=== PATIENT | male | born 1945 | race Hispanic/Latino ===

== ENCOUNTER 2022-10-05 09:46 | Day surgery (SDC) | payer BC ==
[2022-09-29 15:42] LABS: Specific Gravity 1.024 (1.005-1.030); Urine Bilirubin NEGATIVE (Negative); Urine Blood Negative (Negative); Urine Clarity Clear (Clear); Urine Color Light-Yellow (Yellow); Urine Glucose NEGATIVE (Negative); Urine Protein NEGATIVE (Negative); Urine Urobilinogen 1+ (Normal); Urine pH 6.5 (5.0-7.0)
[2022-10-05] MEDS ORDERED: NA CHLORIDE 0.9% 1,000 ML ONE ×2 (09:58→12:13)
[2022-10-05] MEDS ORDERED: CEFAZOLIN SODIUM 2 GM/VIAL ONE (09:58)
[2022-10-05] MEDS ORDERED: propofoL 200 MG/20 ML VIAL IV ONE (10:23)
[2022-10-05] MEDS ORDERED: FENTANYL CITR 100 MCG/2 ML ONE (10:23)
[2022-10-05] MEDS ORDERED: MIDAZOLAM HCL 2 MG/2 ML INJ ONE ×2 (10:24→10:27)
[2022-10-05] MEDS ORDERED: LIDOCAINE 1% MPF 5 ML VIAL ONE (10:24)
[2022-10-05] MEDS ORDERED: BUPIVACAINE 0.25% PF 30 ML VIAL ONE (10:32)
[2022-10-05] MEDS ORDERED: BACITRACIN OINTMENT 14 GM TUBE TOP ONE (10:32)
[2022-10-05] MEDS ORDERED: GLYCOPYRROLATE 0.2 MG/ML SYR ONE (11:24)
[2022-10-05] MEDS ORDERED: MORPHINE 10 MG/ML VIAL ONE (12:28)
[2022-10-05] MEDS ORDERED: HYDROCODONE/APAP 5/325 MG TAB PO PRN (13:01)
[2022-10-05 14:27] VITALS: BP 140/86; TEMP 96.5; O2SAT 97
--- NOTE | 2022-10-05 14:27 | OP ---
Surgeon: LSE ROJAS Preoperative Diagnoses: 1.Large left hydrocele. 2.Status post left inguinal hernia repair. Postoperative Diagnoses: 1.Moderate left hydrocele. 2.Large loculated and multiseptated left spermatocele. Principal Procedures: 1.Left scrotal hydrocelectomy. 2.Left spermatocelectomy-complex. Indication For Procedure: Mr. Lindquist presented to [facility] with massive enlarged scrotum b ilaterally with suggestion of potential intra-abdominal contents herniating into the scrotal sac. He underwent a CT scan, which confirmed the presence of significant left inguinal hernia containing bow el as well as a fat containing right inguinal hernia. While hydrocele fluid was also noted, given th e presence of the hernias, he underwent inguinal hernia repair with Dr. Copeland. Following that rep air, the swelling of the scrotum persisted. A scrotal ultrasound revealed absence of any intra-testi cular lesions; so he was consented and prepared for definitive surgical management of the residual le ft hemiscrotal swelling suspected to be due to a residual large left hydrocele. Procedure In Detail: The patient was consented in the preoperative holding area before being transfe rred to the operative suite where general anesthesia was induced. He was given Ancef 2 g IV antimicr obial prophylaxis, and pneumo boots were provided for DVT prophylaxis. His left hemiscrotum was shav ed, prepped with Betadine and draped in standard fashion. Subcutaneous Marcaine was instilled in an approximately 3-4 cm Matti's line incision in the anterior left hemiscrotum. A 15 blade was used to incise the epidermis and the subcutaneous tissues and dartos layers were divided using pinpoint elec trocautery. This was taken down to the level of the tunica vaginalis, at which point the surrounding dartos tissues were released with blunt and sharp electrocautery dissection from the underlying raymundo etal layer of the tunica vaginalis. Once it had been circumferentially dissected, I then incised the parietal layer of the tunica vaginalis in the ventral midline superiorly and decompressed it of a si gnificant quantity of straw-colored, but clear fluid. Once sufficiently decompressed in order to del iver it through the scrotal incision, it became apparent that there was not just the hydrocele, but a lso a very significant sized multiloculated and septated spermatocele. As a result, once completely delivered into the operative field, I then dissected the tunica vaginalis off the surrounding spermat ocele until the spermatocele itself was remnant and attached to the epididymis. Then careful dissect ion was performed using blunt dissection and pinpoint electrocautery to divide all of the soleus and vascular attachments along with any ductal structures delivering sperm from the epididymis into the m ultiloculated and septated spermatocele structure. After extensive dissection, once the multiloculat ed spermatocele was freed except for its attachment to the lower pole of the testis at the tail of th e epididymis, I then utilized a 4-0 Monocryl suture to over-sew the ductal attachments before dividin g the spermatocele sac and releasing it off the tail of the epididymis. This was sent for pathologic analysis, and the remainder of the ductal attachments to the tail of the epididymis were oversewn in a running fashion using a 4-0 Monocryl suture. I then performed a careful search for bleeding withi n the testicular structures and in the scrotum and irrigated the area copiously with saline. All ble eding vessels were pinpoint fulgurated, and so I turned my attention back to the hydrocele sac. The excess component of the hydrocele sac was excised before folding it back around the cord structures a nd suturing it together using a running and every third interlocking suture of 3-0 Vicryl. Once this was performed and excellently hemostatic, we again irrigated the tissues and fulgurated any bleeding vessels observed. Once we were happy with the hemostasis achieved, the testis was delivered back in to the scrotal sac and the sac was closed in a running fashion with 3-0 Vicryl closing the dartos and subcutaneous layers. The skin and subcutaneous tissues were similarly closed thereafter using a run daniel 3-0 chromic suture dipped in bacitracin. In the end, the cosmetic result was excellent. The Be tadine was washed off the skin, and bacitracin was applied to the incision. A fluff gauze as well as a scrotal supporter were subsequently applied, and the patient was awakened from general anesthesia. He was then transferred to a stretcher before being transferred to the recovery room in good condit ion. Complications: None. Discharge Disposition: He may follow up in the Urology Clinic in the next 6-8 weeks interval assessm ent of the left hydrocele. Meanwhile, scheduling for simultaneous management of the right hydrocele with Dr. Copeland managing the right inguinal hernia can be scheduled. HANNAH/LIS Voice ID: [id number] Report ID: [id number]
[2022-10-05] MEDS ORDERED: KETOROLAC 30 MG/ML INJ ONE (15:47)
== END 2022-10-05 14:00 | disposition home or self-care (01) ==
LOC: OR 09:46 → MERGE 11:45 → OR 14:00
PROVIDERS: ATTEND Urology
PROC: 0VB70ZZ Excision of Left Tunica Vaginalis, Open Approach (ICD-10-PCS; principal; 2022-10-05 11:45)
PROC: 0VBK0ZZ Excision of Left Epididymis, Open Approach (ICD-10-PCS; 2022-10-05 11:45)
DX: N43.3 Hydrocele, unspecified (principal); N43.40 Spermatocele of epididymis, unspecified
CPT/HCPCS: 81003; 82947; 88108; 88302; 88304; J2001; J2250; J2704; J3010; J7030

== ENCOUNTER 2022-11-07 09:19 | Day surgery (SDC) | payer BC ==
[2022-10-24 15:03] LABS: Absolute Lymphocytes (CBC) 1.3 K/uL (0.7-4.9); Hematocrit 41.4 % (39.6-49.0); Lymphocytes % 20.1 % (15.3-44.8); MCV 94.3 fL (80-100); MPV 7.4 fL (7.6-11.3); RBC Red Blood Cell Count 4.39 M/uL (4.33-5.43)
[2022-10-24 15:08] LABS: Protime INR 0.91
[2022-10-24 15:16] LABS: Potassium 4.1 mEq/L (3.5-5.1)
[2022-11-07] MEDS ORDERED: BUPIVACAINE 0.25% PF 10 ML VIAL ONE (09:36)
[2022-11-07] MEDS ORDERED: BACITRACIN OINTMENT 14 GM TUBE TOP ONE (09:36)
[2022-11-07] MEDS ORDERED: BUPIVACAINE 0.5% PF 10 ML VIAL ONE (09:36)
[2022-11-07] MEDS ORDERED: NA CHLORIDE 0.9% 1,000 ML ONE (09:43)
[2022-11-07] MEDS ORDERED: CEFAZOLIN SODIUM 2 GM/VIAL ONE (09:43)
[2022-11-07] MEDS ORDERED: MIDAZOLAM HCL 2 MG/2 ML INJ ONE (09:49)
[2022-11-07] MEDS ORDERED: FENTANYL CITR 100 MCG/2 ML ONE (09:49)
[2022-11-07] MEDS ORDERED: LIDOCAINE 2% MPF 5 ML VIAL ONE (09:49)
[2022-11-07] MEDS ORDERED: propofoL 200 MG/20 ML VIAL IV ONE (09:49)
[2022-11-07] MEDS ORDERED: ONDANSETRON 4 MG/2 ML VIAL ONE ×2 (09:50→14:56)
[2022-11-07] MEDS ORDERED: ROCURONIUM 50 MG/5 ML VIAL IV ONE ×2 (12:12→14:33)
[2022-11-07] MEDS ORDERED: GLYCOPYRROLATE 0.2 MG/ML SYR ONE ×3 (12:12→14:03)
[2022-11-07] MEDS ORDERED: EPHEDRINE SULF 50 MG/ML VIAL ONE (12:54)
[2022-11-07] MEDS ORDERED: CODEINE 30MG/APAP 300MG TAB PO PRN (14:33)
[2022-11-07] MEDS ORDERED: HYDROMORPHONE HCL 1 MG/ML INJ ONE (14:48)
[2022-11-07 14:49] VITALS: O2SAT 97
[2022-11-07 15:06] VITALS: BP 113/67; TEMP 97
[2022-11-07] MEDS ORDERED: CODEINE 30MG/APAP 300MG TAB ONE (15:15)
--- NOTE | 2022-11-07 15:27 | OP ---
Surgeon: LES ROJAS Preoperative Diagnoses: 1.Right hydrocele. 2.Recurrent left hydrocele. Postoperative Diagnoses: 1.Large right multiloculated spermatocele. 2.Left recurrent hydrocele/hematocele. Principal Procedures: 1.Complex right spermatocelectomy. 2.Right hydrocelectomy. 3.Aspiration of left hematocele/recurrent hydrocele. Indication For Procedure: Mr. Lindquist presented to the Urology Clinic initially with bilateral he miscrotal swelling that was massive. He underwent a left-sided management following a left inguinal hernia repair, which revealed the presence of a large multiloculated spermatocele. After successful management of this, he was seen in followup a couple of weeks later with perfectly decompressed left hemiscrotum, and he desired management of his right massive hemiscrotal swelling. In the interim, be tween the time that he was scheduled for surgery and presenting today, he had recurrence of left alanna scrotal swelling, and I agreed to address that for him today in addition to addressing the right scro brenda swelling. Description Of Procedure: The patient was consented in the preoperative holding area before being tr ansferred to the operative suite where general anesthesia was induced. He was given Ancef 2 g IV ant imicrobial prophylaxis and pneumo boots were provided for DVT prophylaxis. He was supine on the proc edure table, padded and secured appropriately. His genitalia were shaved, prepped with Betadine, and draped in standard fashion. The case was begun identifying a Matti line incision in the right alanna scrotum approximately 2-3 cm in diameter, and instilling the skin and subcutaneous tissues with 0.25% Marcaine. The incision was made using a 15 blade, deepened through the subdermal tissues until the dartos layers were encountered. Then using Bovie electrocautery, the dartos layers were divided, ski n level hemostasis was achieved, and the tunica vaginalis was eventually visualized. Using blunt dis section along with Bovie electrocautery, the dartos layers were freed from what was presumed to be th e parietal layer of the tunica vaginalis. However, after essentially revealing the entire anterior 2 /3 of the fluid containing sac, I incised the sac in the anterior midline attempting to decompress it , and was only able to decompress a [id number] quantity of clear as opposed to straw-colored f luid. This was already a bit suspicious since a hydrocele fluid is typically straw-colored. I then also realized that when it did not decompress fully, that this was likely a multiloculated spermatoce le as opposed to a hydrocele. As a result, I extended the incision by an approximately an additional cm and delivered the entirety of the scrotal contents into the operative field. There, I clearly id entified the presence of a very large multiloculated spermatocele. I then began dissecting it carefu lly freely from the associated cord structures, visualizing the vas deferens and sparing it. I nick nued to release the multiloculated spermatocele intact off the epididymis and eventually was able to free it, sending it for pathologic analysis. Toward the mid base component of the collection, I did identify the junction with the epididymis, and I over-sewed this junction using a 4-0 PDS on a tapere d needle. All of this was done taking care to avoid injury to the vascular structures, and the testi s was viable and remained so throughout the procedure. Additional smaller spermatoceles were identif ied and separately freed and released from within the substance of the epididymis, all of which were sent for pathologic analysis. At this point, I did encounter the actual parietal layer of the tunica vaginalis/the hydrocele sac, but there was a very minimal fluid within. However, I did release the hydrocele sac off the anterior surface of the testis and removed the component of the sac before fold ing the sac behind the epididymis and cord structures and sewing it together using 3-0 Vicryl suture. Copious irrigation was applied and careful attention to hemostasis was performed using Bovie electr ocautery and bipolar Adson forceps. In the end, once completely hemostatic, I then turned my attenti on to the recurrent left hydrocele/hematocele. I used an 18-gauge needle and placed it via the media n raphae to began decompressing the left hemiscrotal contents of straw-colored fluid with blood-tinge d. I placed the needle through about 3 different points within the median raphae in order to achieve mostly complete decompression of all of the fluid within the left hemiscrotum. I then irrigated the internal right hemiscrotal contents copiously as well as the cord structures and the testis before r eturning it into the right hemiscrotum. I then sewed together the dartos layers using 3-[address] ure in a running fashion before closing the skin and subcutaneous tissues using 3-0 chromic dipped in bacitracin. A fluff gauze was applied along with bacitracin to the incision line before a scrotal s upporter was also applied. The patient was then awakened from general anesthesia, transferred to a [facility], and then transferred to the recovery room in good condition. Complications: None. Discharge Disposition: He should follow up in the Urology Clinic within the next 3-6 weeks for inter carlita assessment. HANNAH/LIS Voice ID: [id number] Report ID: [id number]
== END 2022-11-07 15:50 | disposition home or self-care (01) ==
LOC: OR 09:19
PROVIDERS: ATTEND Urology
PROC: 0VB Male Reproductive System, Excision (ICD-10-PCS; 2022-11-07)
PROC: 0V953ZX Drainage of Scrotum, Percutaneous Approach, Diagnostic (ICD-10-PCS; 2022-11-07)
PROC: 0VB60ZZ Excision of Right Tunica Vaginalis, Open Approach (ICD-10-PCS; principal; 2022-11-07 10:45)
DX: N43.3 Hydrocele, unspecified (principal); N43.40 Spermatocele of epididymis, unspecified; N50.1 Vascular disorders of male genital organs; E11.9 Type 2 diabetes mellitus without complications; E78.00 Pure hypercholesterolemia, unspecified; Z79.899 Other long term (current) drug therapy; Z87.19 Personal history of other diseases of the digestive system; Z98.890 Other specified postprocedural states
CPT/HCPCS: 36415; 80048; 82947; 85025; 85610; 85730; 87086; 87088; 88304; J1170; J2001; J2250; J2405; J2704; J3010; J7030

== ENCOUNTER 2022-11-08 05:24 | Emergency (ER) | payer BC ==
--- OUTSIDE RECORDS SUMMARY | 2022-11-08 05:28 | XMS REPORT | Continuity of Care Document ---
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 [employer] 53 [id number] [facility] Problems Condition Condition Condition Status Onset Resolution Last Treating Co mments Source Name Details Category Date Date Treatment Clinician Date EIC EIC Disease Active Univers (epidermal (epidermal 8-18 [place] cyst[place] cyst[place] 00 Medical Right Right Branch scapular scapular Ionizing Ionizing Disease Active Unive rs radiation radiation 8-18 ity of burn burn 00:00: [place] 00 Medical Branch Decreased Decreased Disease Active Uni vers range of range of 6-16 [place]y of motion of motion of [place] right right 00 Medical shoulder shoulder Branch Neuropraxi Neuropraxi Disease Active U nivers a of ulnar a of ulnar 5-13 it y of 00:00: [place] 00 Medical Branch Limitation Limitation Disease Active U nivers of joint of joint 5-13 ity of motion motion 00:00: 00 Medical Branch Pain Pain Disease Active Univers 5-13 ity of 00:00: Medical Branch Hand Hand Disease Active Univers weakness weakness 5- ity of 00:00: [place] 00 Medical Branch Hypersensi Hypersensi Disease Active U nivers tivity tivity 10-21 ity of 00:00: [place] 00 Medical Branch 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 10-17 ity of lesion lesion 00:00: [place] 00 Medical Branch Stiffness Stiffness Disease Active Uni vers in joint in joint 10-14 ity of 00:00: [place] 00 Medical Branch Liposarcom Liposarcom Disease Active U nivers a, well a, well 10-09 ity of differenti differenti [place] at[place] type ated type 00 Medi omar Branch 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 ICD10 Diagnosis Term [employer] Sebaceous Sebaceous Disease Active Uni vers cyst cyst 11-29 ity of 00:00: [place] 00 Medical Branch Axillary Axillary Disease Active Unive rs mass mass - ity of 00:00: [place] 00 Medical Branch [id number] Right Problem Common hydrocele [facility] [id number] Elevated Problem Comm on PSA [facility] [id number] Bilateral Problem Comm on inguinal Spirit hernia - [facility] without St obstructio [facility] n or Medical gangrene, Center recurrence not specified [id number] BPH loc w Problem Com sun urin Spirit obs/LUTS - [facility] [id number] Left Problem Common inguinal Spirit hernia - [facility] [id number] Nodular Problem Comm on prostate [facility] Allergies, Adverse Reactions, Alerts Allergy Allergy Status Severity Reaction(s) Onset Inactive Treating Comm ents Source Name Type Date Date Clinician NO KNOWN Drug Active Univers ALLERGIE Class ity of S [facility] Social History Social Habit Start Date Stop Date Quantity Comments Source History of [facility] - Tobacco Use [facility] Sex Assigned At [facility] clara - [facility] Tobacco use and 2021-01-03 2021-01-03 Never used Universit y of exposure 00:00:00 00:00:00 [facility] Alcohol intake 2021-01-03 2021-01-03 Current University of 00:00:00 00:00:00 non-drinker of [facility] alcohol [place] (finding) Smoking Status Start Date Stop Date Source Never Smoker [facility] - [facility] Medications Ordered Filled Start Stop Current Ordering Indication Dosage Frequency Signature Comments Components Source Medication Medication Date Date Medication? Clinician (SIG) Name Name triamcinleonel 2020- No [id number] 40mg Univers va 12-15 9100 ity of acetonide 23:00: 21:49 [place] (KENALOG) 00 :00 Medical injection Branch 40 mg triamcinolo 2020- No [id number] 40mg 40 mg, [facility] 12-15 9100 Intra-juventino ity of acetonide 23:00: 21:49 [place] oneil (KENALOG) 00 :00 ONCE, 1 Medical injection dose, [facility] h 40 mg 12/15/20 at 1800, Routine ALPRAZOLAM Yes .25mg Take 0.25 U nivers ORAL 8-28 mg by ity of 14:35: mouth. [address] ATORVASTATI Yes 10mg Take 10 mg Univers N CALCIUM 8-28 by mouth. ity o f (ATORVASTAT 14:35: [place] IN ORAL) [address] [place] [address] ALPRAZOLAM Yes .25mg Take 0.25 U nivers ORAL 8-28 mg by ity of 14:35: mouth. [address] ATORVASTATI Yes 10mg Take 10 mg Univers N CALCIUM 8-28 by mouth. ity o f (ATORVASTAT 14:35: [place] IN ORAL) [address] [place] [address] ALPRAZOLAM Yes .25mg Take 0.25 U nivers ORAL 8-28 mg by ity of 14:35: mouth. [address] ATORVASTATI Yes 10mg Take 10 mg Univers N CALCIUM 8-28 by mouth. ity o f (ATORVASTAT 14:35: [place] IN ORAL) [address] [place] [address] ALPRAZOLAM Yes .25mg Take 0.25 U nivers ORAL 8-28 mg by ity of 14:35: mouth. [address] ATORVASTATI Yes 10mg Take 10 mg Univers N CALCIUM 8-28 by mouth. ity o f (ATORVASTAT 14:35: [place] IN ORAL) [address] [place] [address] ALPRAZOLAM Yes .25mg Take 0.25 U nivers ORAL 8-28 mg by ity of 14:35: mouth. [address] ATORVASTATI Yes 10mg Take 10 mg Univers N CALCIUM 8-28 by mouth. ity o f (ATORVASTAT 14:35: [place] IN ORAL) [address] [place] [address] ALPRAZOLAM Yes .25mg Take 0.25 U nivers ORAL 8-28 mg by ity of 14:35: mouth. [address] ATORVASTATI Yes 10mg Take 10 mg Univers N CALCIUM 8-28 by mouth. ity o f (ATORVASTAT 14:35: [place] IN ORAL) [address] [place] [address] HYDROcodone Yes 1{tbl} Take 1-2 Univers -acetaminop 4-29 Tabs by ity o f hen (NORCO) 00:00: mouth [place] 5-325 mg 00 every 6 Medical tablet (six) Branch hours as needed for Pain (scale 7-10). zolpidem Yes 5mg Take 1 Tab Uni vers (AMBIEN) 5 4-29 by mouth ity o f mg tablet 00:00: at bedtime [place] 00 as needed Medical for Sleep. Branch HYDROcodone Yes 1{tbl} Take 1-2 Univers -acetaminop 4-29 Tabs by ity o f hen (NORCO) 00:00: mouth [place] 5-325 mg 00 every 6 Medical tablet (six) Branch hours as needed for Pain (scale 7-10). zolpidem Yes 5mg Take 1 Tab Uni vers (AMBIEN) 5 4-29 by mouth ity o f mg tablet 00:00: at bedtime [place] 00 as needed Medical for Sleep. Branch HYDROcodone Yes 1{tbl} Take 1-2 Univers -acetaminop 4-29 Tabs by ity o f hen (NORCO) 00:00: mouth [place] 5-325 mg 00 every 6 Medical tablet (six) Branch hours as needed for Pain (scale 7-10). zolpidem Yes 5mg Take 1 Tab Uni vers (AMBIEN) 5 4-29 by mouth ity o f mg tablet 00:00: at bedtime [place] 00 as needed Medical for Sleep. Branch HYDROcodone Yes 1{tbl} Take 1-2 Univers -acetaminop 4-29 Tabs by ity o f hen (NORCO) 00:00: mouth [place] 5-325 mg 00 every 6 Medical tablet (six) Branch hours as needed for Pain (scale 7-10). zolpidem Yes 5mg Take 1 Tab Uni vers (AMBIEN) 5 4-29 by mouth ity o f mg tablet 00:00: at bedtime [place] 00 as needed Medical for Sleep. Branch HYDROcodone Yes 1{tbl} Take 1-2 Univers -acetaminop 4-29 Tabs by ity o f hen (NORCO) 00:00: mouth [place] 5-325 mg 00 every 6 Medical tablet (six) Branch hours as needed for Pain (scale 7-10). zolpidem Yes 5mg Take 1 Tab Uni vers (AMBIEN) 5 4-29 by mouth ity o f mg tablet 00:00: at bedtime [place] 00 as needed Medical for Sleep. Branch HYDROcodone Yes 1{tbl} Take 1-2 Univers -acetaminop 4-29 Tabs by ity o f hen (NORCO) 00:00: mouth [place] 5-325 mg 00 every 6 Medical tablet (six) Branch hours as needed for Pain (scale 7-10). zolpidem 2013-0 Yes 5mg Take 1 Tab Uni vers (AMBIEN) 5 4-29 by mouth ity o f mg tablet 00:00: at bedtime [place] 00 as needed Medical for Sleep. Branch HYDROcodone Yes 1{tbl} Take 1-2 Univers -acetaminop 4-22 Tabs by ity o f hen (NORCO 00:00: mouth [place] 5) 5-325 mg 00 every 4 Medic al tablet (four) Branch hours as needed for Pain (scale 4-6). HYDROcodone 2013-0 Yes 1{tbl} Take 1-2 Univers -acetaminop 4-22 Tabs by ity o f hen (NORCO 00:00: mouth [place] 5) 5-325 mg 00 every 4 Medic al tablet (four) Branch hours as needed for Pain (scale 4-6). HYDROcodone 2013-0 Yes 1{tbl} Take 1-2 Univers -acetaminop 4-22 Tabs by ity o f hen (NORCO 00:00: mouth [place] 5) 5-325 mg 00 every 4 Medic al tablet (four) Branch hours as needed for Pain (scale 4-6). HYDROcodone 2013-0 Yes 1{tbl} Take 1-2 Univers -acetaminop 4-22 Tabs by ity o f hen (NORCO 00:00: mouth [place] 5) 5-325 mg 00 every 4 Medic al tablet (four) Branch hours as needed for Pain (scale 4-6). HYDROcodone 0 Yes 1{tbl} Take 1-2 Univers -acetaminop 4-22 Tabs by ity o f hen (NORCO 00:00: mouth [place] 5) 5-325 mg 00 every 4 Medic al tablet (four) Branch hours as needed for Pain (scale 4-6). HYDROcodone 0 Yes 1{tbl} Take 1-2 Univers -acetaminop 4-22 Tabs by ity o f hen (NORCO 00:00: mouth [place] 5) 5-325 mg 00 every 4 Medic al tablet (four) Branch hours as needed for Pain (scale 4-6). Atorvastati Atorvastati No 1{table QD Atorvastat n Calcium n Calcium t} in Calcium 10 MG 10 MG 10 MG metFORMIN metFORMIN No 1{table QD metFORMIN HCl 500 MG HCl 500 MG t_with_ HCl 500 MG a_meal} Atorvastati Atorvastati No 1{table QD Atorvastat n Calcium n Calcium t} in Calcium 10 MG 10 MG 10 MG metFORMIN metFORMIN No 1{table QD metFORMIN HCl 500 MG HCl 500 MG t_with_ HCl 500 MG a_meal} Flomax 0.4 Flomax 0.4 No 1{capsu QD Flomax 0.4 MG MG le} MG metFORMIN metFORMIN No 1{table QD metFORMIN HCl 500 MG HCl 500 MG t_with_ HCl 500 MG a_meal} Atorvastati Atorvastati No 1{table QD Atorvastat n Calcium n Calcium t} in Calcium 10 MG 10 MG 10 MG Atorvastati Atorvastati No 1{table QD Atorvastat n Calcium n Calcium t} in Calcium 10 MG 10 MG 10 MG Flomax 0.4 Flomax 0.4 No 1{capsu QD Flomax 0.4 MG MG le} MG metFORMIN metFORMIN No 1{table QD metFORMIN HCl 500 MG HCl 500 MG t_with_ HCl 500 MG a_meal} Immunizations Ordered Filled Immunization Date Status Comments [facility] e Immunization Name Name Pneumococcal 2013-09-30 Completed University o f Polysaccharide, 00:00:00 [place] Med ical PPSV23 (PNEUMOVAX) Branch Pneumococcal 2013-09-30 Completed University o f Polysaccharide, 00:00:00 [place] Med ical PPSV23 (PNEUMOVAX) Branch Pneumococcal 2013-09-30 Completed University o f Polysaccharide, 00:00:00 [place] Med ical PPSV23 (PNEUMOVAX) Branch Pneumococcal 2013-09-30 Completed University o f Polysaccharide, 00:00:00 [place] Med ical PPSV23 (PNEUMOVAX) Branch Pneumococcal 2013-09-30 Completed University o f Polysaccharide, 00:00:00 [place] Med ical PPSV23 (PNEUMOVAX) Branch Pneumococcal 2013-09-30 Completed University o f Polysaccharide, 00:00:00 [place] Med ical PPSV23 (PNEUMOVAX) Branch Vital Signs Vital Name Observation Time Observation Value Comments Source height 2022-07-05 13:45:00 70 [in_i] [facility] weight 2022-07-05 13:45:00 180.6 [lb_av] [facility] temperature 2022-07-05 13:45:00 97.9 [degF] [facility] bmi 2022-07-05 13:45:00 25.91 kg/m2 [facility] oximetry 2022-07-05 13:45:00 92 % [facility] respiratory rate 2022-07-05 13:45:00 16 /min Comm on [facility] blood pressure 2022-07-05 13:45:00 145 mm[Hg] [facility] - systolic [facility] blood pressure 2022-07-05 13:45:00 82 mm[Hg] Common [facility] - diastolic [facility] height 2022-05-25 09:00:00 70 [in_i] Common [facility] pirit [facility] weight 2022-05-25 09:00:00 180 [lb_av] [facility] - [facility] temperature 2022-05-25 09:00:00 98.0 [degF] Common S pirit [facility] bmi 2022-05-25 09:00:00 25.82 kg/m2 [facility] oximetry 2022-05-25 09:00:00 99 % Common [facility] respiratory rate 2022-05-25 09:00:00 18 /min Comm on [facility] blood pressure 2022-05-25 09:00:00 142 mm[Hg] Common [facility] - systolic [facility] blood pressure 2022-05-25 09:00:00 68 mm[Hg] Common [facility] - diastolic [facility] height 2022-03-29 13:45:00 70 [in_i] Common [facility] weight 2022-03-29 13:45:00 175.6 [lb_av] Common [facility] temperature 2022-03-29 13:45:00 98.6 [degF] Common S pirit [facility] bmi 2022-03-29 13:45:00 25.19 kg/m2 Common S [facility] oximetry 2022-03-29 13:45:00 99 % Common S [facility] respiratory rate 2022-03-29 13:45:00 16 /min Comm on [facility] blood pressure 2022-03-29 13:45:00 180 mm[Hg] Common [facility] - systolic [facility] blood pressure 2022-03-29 13:45:00 86 mm[Hg] [facility] - diastolic [facility] Heart rate 2021-01-03 20:44:00 71 /min Universi ty [facility] Body height 2021-01-03 20:44:00 185.4 cm Universi ty [facility] Body weight 2021-01-03 20:44:00 74.39 kg Universi [facility] BMI 2021-01-03 20:44:00 21.64 kg/m2 Universi ty [facility] Systolic blood 2021-01-03 20:44:00 131 mm[Hg] Univer sity of pressure [facility] Diastolic blood 2021-01-03 20:44:00 80 mm[Hg] Unive rsity of [facility] Systolic blood 2020-12-15 19:54:00 125 mm[Hg] Univer sity of [facility] Diastolic blood 2020-12-15 19:54:00 84 mm[Hg] Unive rsity of [facility] Heart rate 2020-12-15 19:54:00 72 /min Universi ty [facility] Body height 2020-12-15 19:54:00 185.4 cm Universi ty [facility] Body weight 2020-12-15 19:54:00 74.39 kg Universi [facility] BMI 2020-12-15 19:54:00 21.64 kg[facility] Procedure Date / Time Performed Performing Clinician Sourscottie e XR SHOULDER 2+ VW 2020-12-15 19:58:22 Tamika Nuno [facility] Encounters Start End Encounter Admission Attending Care Care Encounter Source Date/Time Date/Time Type Type Clinicians Facility Department ID 2022-06-29 Outpatient STLMLC STLMLC [id number] Common 14:22:02 [id number] [facility] 2022-03-29 Outpatient STLMLC STLMLC [id number] Common 13:41:02 [id number] [facility] 2022-07-05 2022-07-05 OFFICE STLMLC STLMLC [id number] Co mmon 00:00:00 00:00:00 VISIT EST Spir it PT LEVEL 3 - [facility] 2022-05-25 2022-05-25 OFFICE STLMLC STLMLC [id number] Co mmon 00:00:00 00:00:00 VISIT EST Spir it PT LEVEL 3 - [facility] 2022-04-17 2022-04-17 (TEL) STLMLC STLMLC [id number] Co mmon 00:00:00 00:00:00 Spirit - [facility] 2022-03-29 2022-03-29 OFFICE STLMLC STLMLC [id number] Co mmon 00:00:00 00:00:00 VISIT NEW Spir it PT LEVEL 4 - [facility] 2021-01-03 2021-01-03 [facility] [id number] Univers 15:36:48 15:51:48 Visit [facility] [id number] it y of Surgical [id number] [place] as Specialti [id number] Me dical es 198 [facility] 2021-01-03 2021-01-03 [facility] [id number] Univers 15:45:00 15:45:00 [facility] 2020-12-15 2020-12-15 [facility] [id number] Univers 14:58:21 23:59:00 Encounter [facility] [id number] ity of Surgical [id number] [place] Specialti [id number] Me dical es [id number] [facility] 2020-12-15 2020-12-15 Office [facility] [id number] Univers 14:04:16 16:45:59 Visit [facility] [id number] it y of Surgical [id number] [place] Specialti [phone] Me dical es 198 [facility] 2020-12-15 2020-12-15 [facility] [id number] Univers 14:30:00 14:30:00 [facility] 2020-12-06 2020-12-06 [facility] [id number] Univers 14:15:00 14:15:00 TAMIKA rhodes [facility] Results Test Description Test Time Test Comments Results Result [facility] e Comments XR SHOULDER 2+ VW 2020-12-15 He has a large Uni versity of RIGHT 21:08:25 rotator cuff [place] [facility] l arthropathy the Branch humeral head is migrated superior up against the acromion there are degenerative changes 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
--- NOTE | 2022-11-08 06:06 | ER ---
Nurse's Notes [facility] Name: Sushil Lindquist Age: 77 yrs Sex: Male : 1945 Arrival Date: 11/08/2022 Time: 05:24 Bed 12 Private MD: Diagnosis: Acute urinary retention, postoperative urinary retention Presentation: 11/08 05:36 Chief complaint: Patient states: Yesterday i had surgery for right sided hydrocelectomy kd3 and then this morning around 5 am, i cannot urinate and i am in a lot of pain. Coronavirus screen: Vaccine status: Patient reports being unvaccinated. Ebola Screen: No symptoms or risks identified at this time. Initial Sepsis Screen: Does the patient meet any 2 criteria? No. Patient's initial sepsis screen is negative. Does the patient have a suspected source of infection? No. Patient's initial sepsis screen is negative. Risk Assessment: Do you want to hurt yourself or someone else? Patient reports no desire to harm self or others. Onset of symptoms was November 08, 2022. 05:36 Method Of Arrival: Ambulatory kd3 05:36 Acuity: MARIAA 3 kd3 Triage Assessment: 05:38 General: Appears uncomfortable, Behavior is calm, cooperative. Pain: Complains of pain kd3 in pelvis. Historical: - Allergies: 05:38 No Known Allergies; kd3 - Immunization history:: Adult Immunizations up to date. - Social history:: Smoking status: Patient denies any tobacco usage or history of. - Family history:: not pertinent. Screenin:35 [facility] ED Fall Risk Assessment (Adult) History of falling in the last 3 months, kd3 including since admission No falls in past 3 months (0 pts). Abuse screen: Denies threats or abuse. Denies injuries from another. Nutritional screening: No deficits noted. Tuberculosis screening: No symptoms or risk factors identified. Assessment: 06:36 Reassessment: Patient and/or family updated on plan of care and expected duration. Pain kd3 level reassessed. Patient is alert, oriented x 3, equal unlabored respirations, skin warm/dry/pink. Patient denies pain at this time. Patient states feeling better. Patient states symptoms have improved. Vital Signs: 05:36 BP 148 / 92; Pulse 71; Resp 19; Temp 97.9; Pulse Ox 98% on R/A; Weight 81.65 kg; Height kd3 6 ft. 0 in. ; 05:36 Body Mass Index 24.41 (81.65 kg, 182.88 cm) kd3 ED Course: 05:25 Patient arrived in ED. jj6 05:38 Triage completed. kd3 05:38 Arm band placed on left wrist. kd3 05:53 Senia Moody RN is Primary Nurse. kd3 05:53 Gurdeep Tariq MD is Attending Physician. sp4 05:53 No provider procedures requiring assistance completed. Barrera cath inserted, using kd3 sterile technique, 16 Fr., by ut, balloon inflated, to gravity drainage. 06:05 Manish Garcia MD is Referral Physician. sp4 06:35 Patient has correct armband on for positive identification. kd3 06:35 Patient did not have IV access during this emergency room visit. kd3 Administered Medications: No medications were administered Medication: 06:35 VIS not applicable for this client. kd3 Outcome: 06:05 Discharge ordered by . sp4 06:35 Discharged to home ambulatory. kd3 06:35 Condition: stable 06:35 Discharge instructions given to patient, family, Instructed on discharge instructions, follow up and referral plans. Demonstrated understanding of instructions, follow-up care. 06:36 Patient left the ED. kd3 Signatures: Aurelia Ward j6 Senia Moody, MARLON RN kd3 Gurdeep Tariq MD MD sp4
--- NOTE | 2022-11-08 06:06 | EDPHYS ---
Physician Documentation [facility] Name: Sushil Lindquist Age: 77 yrs Sex: Male : 1945 Arrival Date: 11/08/2022 Time: 05:24 Bed 12 Private MD: ED Physician Gurdeep Tariq HPI: 11/08 05:53 This 77 yrs old Male presents to ER via Ambulatory with complaints of Post sp4 Surgical Pain, Urinary Retention. 05:53 77-year-old male presents with urinary retention. . sp4 06:01 Patient states he had a right hydrocele surgery by Dr. Manish Garcia 11/07/2022 at 5 sp4 AM patient went home and then he has stopped urinating at 11 PM same day. Patient presents here with bladder pain and distention discomfort. He has history of enlarged prostate. Historical: - Allergies: 05:38 No Known Allergies; kd3 - Immunization history:: Adult Immunizations up to date. - Social history:: Smoking status: Patient denies any tobacco usage or history of. - Family history:: not pertinent. ROS: 06:02 Constitutional: Negative for fever, chills, and weight loss, Abdomen/GI: Negative for sp4 abdominal pain, nausea, vomiting, diarrhea, and constipation, positive urinary bladder pain and distention : Negative for injury, bleeding, discharge, and swelling, positive acute urinary retention, positive bladder pain, positive bladder distention. 06:02 All other systems are negative. Exam: 06:02 Constitutional: This is a well developed, well nourished patient who is awake, alert, sp4 and in no acute distress. Head/Face: Normocephalic, atraumatic. Eyes: Pupils equal round and reactive to light, extra-ocular motions intact. Lids and lashes normal. Conjunctiva and sclera are not injected. Cornea within normal limits. Periorbital areas with no swelling, redness, or edema. ENT: Nares patent. No nasal discharge, no septal abnormalities noted. Tympanic membranes are normal and external auditory canals are clear. Oropharynx with no redness, swelling, or masses, exudates, or evidence of obstruction, uvula midline. Mucous membranes moist. Neck: Trachea midline, no thyromegaly or masses palpated, and no cervical lymphadenopathy. Supple, full range of motion without nuchal rigidity, or vertebral point tenderness. No Meningismus. Chest/axilla: Normal chest wall appearance and motion. Nontender with no deformity. No lesions are appreciated. Cardiovascular: Regular rate and rhythm with a normal S1 and S2. No gallops, murmurs, or rubs. Normal PMI, no JVD. No pulse deficits. Respiratory: Lungs have equal breath sounds bilaterally, clear to auscultation and percussion. No rales, rhonchi or wheezes noted. No increased work of breathing, no retractions or nasal flaring. Abdomen/GI: Soft, with normal bowel sounds. No distension or tympany. No guarding or rebound. Positive distended and painful urinary bladder Back: No spinal tenderness. No costovertebral tenderness. Male : Positive enlarged scrotum with postoperative incision right side of the scrotum. Positive urinary bladder distention. Barrera catheter placed on exam. Patient drained 1 L clear urine Skin: Warm, dry with normal turgor. Normal color with no rashes, no lesions, and no evidence of cellulitis. MS/ Extremity: Pulses equal, no cyanosis. Neurovascular intact. Full, normal range of motion. Neuro: Awake and alert, GCS 15, oriented to person, place, time, and situation. Cranial nerves II-XII grossly intact. Motor strength 5/5 in all extremities. Sensory grossly intact. Psych: Awake, alert, with orientation to person, place and time. Behavior, mood, and affect are within normal limits Vital Signs: 05:36 BP 148 / 92; Pulse 71; Resp 19; Temp 97.9; Pulse Ox 98% on R/A; Weight 81.65 kg; Height kd3 6 ft. 0 in. ; 05:36 Body Mass Index 24.41 (81.65 kg, 182.88 cm) kd3 MDM: 06:04 Differential Diagnosis Acute urinary retention. Data reviewed: vital signs, nurses sp4 notes, old medical records. ED course: Catheter was placed patient drained 1.1 L of clear urine we will provide leg bag and will advised to see urologist in 7 days for voiding trial in our office.. 06:05 Patient medically screened. sp4 11/08 06:04 Order name: Barrera; Complete Time: 06:36 sp4 11/08 06:04 Order name: Leg Bag; Complete Time: 06:36 sp4 Administered Medications: No medications were administered Disposition Summary: 11/08/22 06:05 Discharge Ordered Location: Home sp4 Problem: new sp4 Symptoms: have improved sp4 Condition: Stable sp4 Diagnosis - Acute urinary retention, postoperative urinary retention sp4 Followup: sp4 - With: Manish Garcia MD - When: 7 - 10 days - Reason: Recheck today's complaints Discharge Instructions: - Discharge Summary Sheet sp4 - Acute Urinary Retention, Male, [id number] sp4 Signatures: Senia Moody RN RN kd3 Gurdeep Tariq MD MD sp4
[2022-11-08 06:41] VITALS: BP 148/92; TEMP 97.9; O2SAT 98
== END 2022-11-08 06:36 | disposition home or self-care (01) ==
LOC: ER 05:24
DX: N99.89 Other postprocedural complications and disorders of genitourinary system (principal); Z98.890 Other specified postprocedural states
CPT/HCPCS: 51702; 99284

== ENCOUNTER 2022-11-12 23:27 | Emergency (ER) | payer BC ==
--- OUTSIDE RECORDS SUMMARY | 2022-11-12 23:41 | XMS REPORT | Continuity of Care Document ---
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 [employer] 53 [id number] [facility] Problems Condition Condition Condition Status Onset Resolution Last Treating Co mments Source Name Details Category Date Date Treatment Clinician Date EIC EIC Disease Active Univers (epidermal (epidermal 8-18 [place] cyst[place] cyst[place] 00 Medical Right Right Branch scapular scapular Ionizing Ionizing Disease Active Unive rs radiation radiation 8-18 ity of burn burn 00:00: [place] 00 Medical Branch Decreased Decreased Disease Active Uni vers range of range of 6-16 ity of motion of motion of [place] right right 00 Medical shoulder shoulder Branch Neuropraxi Neuropraxi Disease Active U nivers a of ulnar a of ulnar 5-13 it y of 00:00: 00 Medical Branch Limitation Limitation Disease Active U nivers of joint of joint 5-13 ity of motion motion 00:00: 00 Medical Branch Pain Pain Disease Active Univers 5-13 ity of 00:00: 00 Medical Branch Hand Hand Disease Active Univers weakness weakness 5-13 ity of 00:00: [place] 00 Medical Branch [...] Active Uni vers other skin other skin 6 it y of and and 00:00: [place] subcutaneo subcutaneo 00 Me dical us tissue us tissue Bran ch Headache Headache Disease Active Overview: Un carmelo 6- Formattin ity of 00:00: g of this [place] 00 note Medical might be Branch different from the original. ICD10 Diagnosis Term [employer] Sebaceous Sebaceous Disease Active Uni vers cyst cyst 11-29 ity of 00:00: [place] 00 Medical Branch Axillary Axillary Disease Active Unive rs mass mass - ity of 00:00: [place] 00 Medical Branch [id number] Right Problem Common hydrocele [facility] [id number] Elevated Problem Comm on PSA [facility] [id number] Bilateral Problem Comm on inguinal Spirit hernia - [facility] without St obstructio [facility] or Medical gangrene, Center recurrence not specified [id number] BPH loc w Problem Com mon urin Spirit obs/LUTS - [facility] [id number] Left Problem Common inguinal Spirit hernia - [facility] [id number] Nodular Problem Comm on prostate [facility] Allergies, Adverse Reactions, Alerts Allergy Allergy Status Severity Reaction(s) Onset Inactive Treating Comm ents Source Name Type Date Date Clinician NO KNOWN Drug Active Univers ALLERGIE Class ity of S [facility] [place] [facility] Social History Social Habit Start Date Stop Date Quantity Comments Source History of Common Spirit - Tobacco Use [facility] Sex Assigned At Common Sp clara - [facility] Tobacco use and 2021-01-03 2021-01-03 Never used Universit y of exposure 00:00:00 00:00:00 [facility] [place] [facility] Alcohol intake 2021-01-03 2021-01-03 Current University of 00:00:00 00:00:00 non-drinker of [facility] alcohol Hominy (finding) Smoking Status Start Date Stop Date Source Never Smoker [facility] Spirit - [facility] Medications Ordered Filled Start Stop Current Ordering Indication Dosage Frequency Signature Comments Components Source Medication Medication Date Date Medication? Clinician (SIG) Name Name triamcinolo 2020- No [id number] 40mg Univers ne 12-15 9100 ity of acetonide 23:00: 21:49 [place] (KENALOG) 00 :00 Medical injection Branch 40 mg triamcinolo 2020- No [id number] 40mg 40 mg, Univers ne 12-15 9100 Intra-juventino ity of acetonide 23:00: 21:49 [place] oneil (KENALOG) 00 :00 ONCE, 1 Medical injection dose, [facility] h 40 mg 12/15/20 at 1800, Routine ALPRAZOLAM Yes .25mg Take 0.25 U nivers ORAL 8-28 mg by ity of 14:35: mouth. [address] ATORVASTATI Yes 10mg Take 10 mg Univers N CALCIUM 8-28 by mouth. ity o f (ATORVASTAT 14:35: [place] IN ORAL) [address] [place] [address] ALPRAZOLAM Yes .25mg Take 0.25 U nivers ORAL 8-28 mg by ity of 14:35: mouth. [address] ATORVASTATI Yes 10mg Take 10 mg Univers N CALCIUM 8-28 by mouth. ity o f (ATORVASTAT 14:35: [place] IN ORAL) [address] [place] [address] ALPRAZOLAM Yes .25mg Take 0.25 U nivers ORAL 8-28 mg by ity of 14:35: mouth. [address] ATORVASTATI Yes 10mg Take 10 mg Univers N CALCIUM 8-28 by mouth. ity o f (ATORVASTAT 14:35: [place] IN ORAL) [address] [place] [address] ALPRAZOLAM Yes .25mg Take 0.25 U nivers ORAL 8-28 mg by ity of 14:35: mouth. [address] ATORVASTATI Yes 10mg Take 10 mg Univers N CALCIUM 8-28 by mouth. ity o f (ATORVASTAT 14:35: [place] IN ORAL) [address] [place] [address] ALPRAZOLAM Yes .25mg Take 0.25 U nivers ORAL 8-28 mg by ity of 14:35: mouth. [address] ATORVASTATI Yes 10mg Take 10 mg Univers N CALCIUM 8-28 by mouth. ity o f (ATORVASTAT 14:35: [place] IN ORAL) [address] [place] [address] ALPRAZOLAM Yes .25mg Take 0.25 U nivers ORAL 8-28 mg by ity of 14:35: mouth. [address] ATORVASTATI Yes 10mg Take 10 mg Univers N CALCIUM 8-28 by mouth. ity o f (ATORVASTAT 14:35: [place] IN ORAL) [address] [place] [address] HYDROcodone Yes 1{tbl} Take 1-2 Univers -acetaminop [...] as needed for Pain (scale 7-10). zolpidem 0 Yes 5mg Take 1 Tab Uni vers [...] as needed for Pain (scale 4-6). HYDROcodone Yes 1{tbl} Take 1-2 Univers -acetaminop 4-22 Tabs by ity o f hen (NORCO 00:00: mouth [place] 5) 5-325 mg 00 every 4 Medic al tablet (four) Branch hours as needed for Pain (scale 4-6). HYDROcodone Yes 1{tbl} Take 1-2 Univers -acetaminop [...] Immunizations Ordered Filled Immunization Date Status Comments [facility] Immunization Name Name Pneumococcal 2013-09-30 Completed [...] 2013-09-30 Completed University o f Polysaccharide, 00:00:00 [place] Med ical PPSV23 (PNEUMOVAX) Branch Vital Signs Vital Name Observation Time Observation Value Comments Source height 2022-07-05 13:45:00 70 [in_i] [facility] weight 2022-07-05 13:45:00 180.6 [lb_av] Common [facility] temperature 2022-07-05 13:45:00 97.9 [degF] [facility] bmi 2022-07-05 13:45:00 25.91 kg/m2 [facility] oximetry 2022-07-05 13:45:00 92 % [facility] respiratory rate 2022-07-05 13:45:00 16 /min Comm on [facility] blood pressure 2022-07-05 13:45:00 145 mm[Hg] [facility] - systolic [facility] blood pressure 2022-07-05 13:45:00 82 mm[Hg] [facility] - diastolic [facility] height 2022-05-25 09:00:00 70 [in_i] Common S pirit [facility] weight 2022-05-25 09:00:00 180 [lb_av] Common S pirit [facility] temperature 2022-05-25 09:00:00 98.0 [degF] Common S pirit [facility] bmi 2022-05-25 09:00:00 25.82 kg/m2 Common S [facility] oximetry 2022-05-25 09:00:00 99 % [facility] respiratory rate 2022-05-25 09:00:00 18 /min Comm on [facility] blood pressure 2022-05-25 09:00:00 142 mm[Hg] Common [facility] - systolic [facility] blood pressure 2022-05-25 09:00:00 68 mm[Hg] Common [facility] - diastolic [facility] height 2022-03-29 13:45:00 70 [in_i] Common [facility] weight 2022-03-29 13:45:00 175.6 [lb_av] Common [facility] temperature 2022-03-29 13:45:00 98.6 [degF] Common S pirit [facility] bmi 2022-03-29 13:45:00 25.19 kg/m2 Common S [facility] oximetry 2022-03-29 13:45:00 99 % Common S [facility] respiratory rate 2022-03-29 13:45:00 16 /min Comm on [facility] blood pressure 2022-03-29 13:45:00 180 mm[Hg] Common [facility] - systolic [facility] blood pressure 2022-03-29 13:45:00 86 mm[Hg] Common [facility] - diastolic [facility] Heart rate 2021-01-03 20:44:00 71 /min Universi ty [facility] Body height 2021-01-03 20:44:00 185.4 cm Universi ty [facility] Body weight 2021-01-03 20:44:00 74.39 kg Universi ty [facility] BMI 2021-01-03 20:44:00 21.64 kg/m2 Universi ty [facility] Systolic blood 2021-01-03 20:44:00 131 mm[Hg] Univer sity of pressure [facility] [place] [facility] Diastolic blood 2021-01-03 20:44:00 80 mm[Hg] Unive rsity of [facility] Systolic blood 2020-12-15 19:54:00 125 mm[Hg] Univer sity of [facility] Diastolic blood 2020-12-15 19:54:00 84 mm[Hg] Unive rsity of [facility] Heart rate 2020-12-15 19:54:00 72 /min Universi ty [facility] Body height 2020-12-15 19:54:00 185.4 cm Universi ty [facility] Body weight 2020-12-15 19:54:00 74.39 kg Universi ty [facility] BMI 2020-12-15 19:54:00 21.64 kg/m2 Universi ty [facility] Procedures Procedure Date / Time Performed Performing Clinician Viji e XR SHOULDER 2+ VW 2020-12-15 19:58:22 Tamika Nuno [facility] Encounters Start End Encounter Admission Attending Care Care Encounter Source Date/Time Date/Time Type Type Clinicians Facility Department ID 2022-11-08 Outpatient STLMLC STLMLC [id number] Common 15:59:01 [id number] [facility] 2022-06-29 Outpatient STLMLC STLMLC [id number] Common 14:22:02 [id number] [facility] 2022-03-29 Outpatient STLMLC STLMLC [id number] Common 13:41:02 [id number] [facility] 2022-07-05 2022-07-05 OFFICE STLMLC STLMLC [id number] Co mmon 00:00:00 00:00:00 VISIT EST Spir it PT LEVEL 3 - [facility] 2022-05-25 2022-05-25 OFFICE STLMLC STLMLC [id number] Co mmon 00:00:00 00:00:00 VISIT EST Spir it PT LEVEL 3 - [facility] 2022-04-17 2022-04-17 (TEL) STLMLC STLMLC [id number] Co mmon 00:00:00 00:00:00 Spirit - [facility] 2022-03-29 2022-03-29 OFFICE STLMLC STLMLC [id number] Co mmon 00:00:00 00:00:00 VISIT NEW Spir it PT LEVEL 4 - [facility] 2021-01-03 2021-01-03 [facility] [id number] Univers 15:36:48 15:51:48 Visit [facility] [id number] it y of Surgical [id number] [place] as Specialti [id number] Me dical es [address] [facility] 2021-01-03 2021-01-03 [id number] Univers 15:45:00 15:45:00 [facility] 2020-12-15 2020-12-15 [facility] [id number] Univers 14:58:21 23:59:00 Encounter [facility] [id number] ity of Surgical [id number] [place] as Specialti [id number] [place] dical es [address] [facility] 2020-12-15 2020-12-15 Office [facility] [id number] Univers 14:04:16 16:45:59 Visit [facility] [id number] it y of Surgical [id number] [place] as Specialti [id number] Me dical es [address] [facility] 2020-12-15 2020-12-15 [facility] [id number] Univers 14:30:00 14:30:00 TAMIKA ity [facility] 2020-12-06 2020-12-06 Outpatient R YAA[facility] [id number] Univers 14:15:00 14:15:00 [facility] Results Test Description Test Time Test Comments Results Result [facility] Comments XR SHOULDER 2+ VW 2020-12-15 He has a large Uni versity of RIGHT 21:08:25 rotator cuff [place] [facility] arthropathy the Branch humeral head is migrated superior up against the acromion there are degenerative changes 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
--- NOTE | 2022-11-13 01:10 | EDPHYS ---
Physician Documentation [facility] Name: Sushil Lindquist Age: 77 yrs Sex: Male : 1945 Arrival Date: 11/12/2022 Time: 23:27 Bed 2 Private MD: ED Physician Freedom Hanna HPI: 11/13 01:05 This 77 yrs old Male presents to ER via Ambulatory with complaints of Problem kdr With Urinary Catheter. 01:05 Patient states he has been able to get urine to flow adequately through his Ornelas. It kdr seemed that he was having little drainage into the bag. He suddenly then had a release of fluid around the Ornelas at the meatus. Patient now presents with obvious loss of integrity of the Ornelas catheter system but the Ornelas bag itself is currently full. We will irrigate the Ornelas and establish its patency and then reevaluate.. Onset: The symptoms/episode began/occurred just prior to arrival. Severity of symptoms: At their worst the symptoms were mild in the emergency department the symptoms are unchanged. The patient has not experienced similar symptoms in the past. The patient has been recently seen by a physician: the patient's primary care provider. Historical: - Allergies: 11/12 23:43 No Known Allergies; kd3 - Immunization history:: Adult Immunizations up to date. - Social history:: Smoking status: unknown. ROS: 11/13 01:05 Constitutional: Negative for fever, chills, and weight loss, Eyes: Negative for injury, kdr pain, redness, and discharge. : Positive for urinary symptoms, Patient states he is leaking urine around his Ornelas without other associated signs and symptoms or concerns. Exam: 01:05 Constitutional: This is a well developed, well nourished patient who is awake, alert, kdr and in no acute distress. 01:05 : Male external genitalia: normal, swelling, scrotal, that is mild. Vital Signs: 11/12 23:42 BP 155 / 93; Pulse 49; Resp 19; Temp 97.6(O); Pulse Ox 99% on R/A; Weight 86.18 kg; kd3 Height 6 ft. 0 in. ; 11/13 01:07 BP 137 / 86; Pulse 55; Resp 16; Temp 98(TE); Pulse Ox 99% ; rv 11/12 23:42 Body Mass Index 25.77 (86.18 kg, 182.88 cm) kd3 MDM: 01:05 Data reviewed: vital signs, nurses notes. ED course: The Ornelas was irrigated and the kdr bag drained without difficulty. The patient was then evaluated in monitored for period of time to determine the patency of the Ornelas and bag system. All appear to be working well and patient was discharged in good condition. The patient was happy with the care provided the plan for discharge and follow-up. 01:09 Patient medically screened. kdr 11/13 00:27 Order name: Marilia. Order: Irrigate ornelas and drain bag; Complete Time: 00:45 kdr Administered Medications: No medications were administered Disposition Summary: 11/13/22 01:09 Discharge Ordered Location: Home kdr Problem: new kdr Symptoms: are resolved kdr Condition: Stable kdr Diagnosis - Orneals catheter drainage disruption, resolved kdr Followup: kdr - With: Private Physician - When: 2 - 3 days - Reason: If symptoms return, Further diagnostic work-up, Recheck today's complaints, Continuance of care, Re-evaluation by your physician Discharge Instructions: - Discharge Summary Sheet kdr - Indwelling Urinary Catheter Care, Adult, [id number] kdr Forms: - Medication Reconciliation Form kdr - Thank You Letter kdr Signatures: Freedom Hanna MD MD kdr Senia Moody, RN RN kd3
--- NOTE | 2022-11-13 01:10 | ER ---
Nurse's Notes [facility] Name: Sushil Lindquist Age: 77 yrs Sex: Male : 1945 Arrival Date: 11/12/2022 Time: 23:27 Bed 2 Private MD: Diagnosis: Ornelas catheter drainage disruption, resolved Presentation: 11/12 23:42 Chief complaint: Patient states: I had a catheter put in here and my doctor said i can kd3 keep the catheter for 14 days but now it is leaking and not flowing into the bag. Coronavirus screen: Vaccine status: Patient reports receiving the 2nd dose of the covid vaccine. Ebola Screen: No symptoms or risks identified at this time. Initial Sepsis Screen: Does the patient meet any 2 criteria? No. Patient's initial sepsis screen is negative. Does the patient have a suspected source of infection? No. Patient's initial sepsis screen is negative. Risk Assessment: Do you want to hurt yourself or someone else? Patient reports no desire to harm self or others. Onset of symptoms was November 12, 2022. 23:42 Method Of Arrival: Ambulatory kd3 23:42 Acuity: MARIAA 4 kd3 Triage Assessment: 23:43 General: Appears in no apparent distress. Behavior is calm, cooperative. Pain: Denies kd3 pain. Historical: - Allergies: 23:43 No Known Allergies; kd3 - Immunization history:: Adult Immunizations up to date. - Social history:: Smoking status: unknown. Screenin/05 00:47 [facility] ED Fall Risk Assessment (Adult) History of falling in the last 3 months, rv including since admission No falls in past 3 months (0 pts) Confusion or Disorientation No (0 pts) Intoxicated or Sedated No (0 pts) Impaired Gait No (0 pts) Mobility Assist Device Used No (0 pt) Altered Elimination No (0 pt) Score/Fall Risk Level 0 - 2 = Low Risk Oriented to surroundings, Maintained a safe environment, Educated pt \T\ family on fall prevention, incl call for assistance when getting out of bed, Assessed \T\ reinforced patient's understanding of fall precautions, Provided non-skid footwear, Hourly rounding (assess needs \T\ fall precautionary measures) done, Used ambulatory aids as needed (educated on \T\ assisted with), Used gait belt as appropriate. 00:48 Abuse screen: Denies threats or abuse. Denies injuries from another. Nutritional rv screening: No deficits noted. Tuberculosis screening: No symptoms or risk factors identified. Assessment: 00:46 General: Appears uncomfortable, Behavior is calm, cooperative. Pain: Denies pain. rv Cardiovascular: Capillary refill < 3 seconds. Respiratory: Airway is patent Respiratory effort is even, unlabored. : Ornelas in place noted the securement devise was placed lowly to the right thigh. replaced with a new one above the previous area, to prevent from pulling the ornelas upon movement of the extremity. Vital Signs: 11/12 23:42 BP 155 / 93; Pulse 49; Resp 19; Temp 97.6(O); Pulse Ox 99% on R/A; Weight 86.18 kg; kd3 Height 6 ft. 0 in. ; 06 01:07 BP 137 / 86; Pulse 55; Resp 16; Temp 98(TE); Pulse Ox 99% ; rv 11/12 23:42 Body Mass Index 25.77 (86.18 kg, 182.88 cm) kd3 ED Course: 11/12 23:30 Patient arrived in ED. ag3 23:43 Triage completed. kd3 23:43 Arm band placed on right wrist. kd3 23:47 Adalid Ulloa, MARLON is Primary Nurse. rv 11/13 00:02 Freedom Hanna MD is Attending Physician. kdr 00:45 Patient did not have IV access during this emergency room visit. Bladder irrigated via rv Ornelas with 250 ml normal saline returned no blood or blood clots noted. clear output. Patient tolerated well. 01:05 Patient has correct armband on for positive identification. Placed in gown. Bed in low rv position. Call light in reach. Side rails up X 1. 01:05 No provider procedures requiring assistance completed. rv Administered Medications: No medications were administered Medication: 01:05 VIS not applicable for this client. rv Output: 01:07 Urine: 250ml (Ornelas); Total: 250ml. rv Outcome: 01:07 Discharged to home ambulatory. rv 01:07 Condition: improved 01:07 Discharge instructions given to patient, Instructed on discharge instructions, follow up and referral plans. Demonstrated understanding of instructions, follow-up care. 01:09 Discharge ordered by . kdr 01:14 Patient left the ED. as6 Signatures: Freedom Hanna MD MD kdr Adalid Ulloa, RN RN Brigid Gonzalez ag3 Nicko Ponce RN RN as6 Senia Moody RN RN kd3
[2022-11-13 01:40] VITALS: O2SAT 99
[2022-11-13 01:42] VITALS: BP 137/86; TEMP 98
== END 2022-11-13 01:14 | disposition home or self-care (01) ==
LOC: ER 23:27
DX: T83.098A Other mechanical complication of other urinary catheter, initial encounter (principal)
CPT/HCPCS: 51700; 99284

== ENCOUNTER 2022-11-17 13:23 | Emergency (ER) | payer BC ==
--- OUTSIDE RECORDS SUMMARY | 2022-11-17 13:27 | XMS REPORT | Continuity of Care Document ---
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 - ity of 00:00: [place] 00 Medical Branch [id number] Right Problem Common hydrocele [facility] [id number] Elevated Problem Comm on PSA [facility] [id number] Bilateral Problem Comm on inguinal Spirit hernia - [facility] without St obstructio [facility] n or Medical gangrene, Center recurrence not specified [id number] BPH loc w Problem Com mon urin Spirit obs/LUTS - [facility] [id number] Left Problem Common inguinal Spirit hernia - [facility] [id number] Nodular Problem Comm on prostate [facility] Allergies, Adverse Reactions, Alerts Allergy Allergy Status Severity Reaction(s) Onset Inactive Treating Comm ents Source Name Type Date Date Clinician NO KNOWN Drug Active Univers ALLERGIE Class ity of S [facility] Social History Social Habit Start Date Stop Date Quantity Comments Source History of Common Spirit - Tobacco Use [facility] Sex Assigned At Common Sp clara - [facility] Tobacco use and 2021-01-03 2021-01-03 Never used Universit y of exposure 00:00:00 00:00:00 [facility] Alcohol intake 2021-01-03 2021-01-03 Current University of 00:00:00 00:00:00 non-drinker of [facility] alcohol [place] (finding) Smoking Status Start Date Stop Date Source Never Smoker [facility] Spirit - [facility] Medications Ordered Filled Start Stop Current Ordering Indication Dosage Frequency Signature Comments Components Source Medication Medication Date Date Medication? Clinician (SIG) Name Name triamcinolo 2020- No [id number] 40mg Univers ne 12-15 9100 ity of acetonide 23:00: 21:49 [place] (KENALOG) 00 :00 Medical injection Branch 40 mg triamcinolo 2020- No [id number] 40mg 40 mg, Univers ne 12-15 9100 Intra-juventino ity of acetonide 23:00: 21:49 [place] oneil (KENALOG) 00 :00 ONCE, 1 Medical injection dose, [facility] h 40 mg 12/15/20 at 1800, Routine ALPRAZOLAM Yes .25mg Take 0.25 U nivers ORAL 8-28 mg by ity of 14:35: mouth. [address] ATORVASTATI Yes 10mg Take 10 mg Univers N CALCIUM 8-28 by mouth. ity o f (ATORVASTAT 14:35: [place] IN ORAL) [address] [place] [address] ALPRAZOLAM Yes .25mg Take 0.25 U nivers ORAL 8-28 mg by ity of 14:35: mouth. [address] ATORVASTATI Yes 10mg Take 10 mg Univers N CALCIUM 8-28 by mouth. ity o f (ATORVASTAT 14:35: [place] IN ORAL) [address] [place] [address] ALPRAZOLAM Yes .25mg Take 0.25 U nivers ORAL 8-28 mg by ity of 14:35: mouth. [address] ATORVASTATI Yes 10mg Take 10 mg Univers N CALCIUM 8-28 by mouth. ity o f (ATORVASTAT 14:35: [place] IN ORAL) [address] [place] [address] ALPRAZOLAM Yes .25mg Take 0.25 U nivers ORAL 8-28 mg by ity of 14:35: mouth. [address] ATORVASTATI Yes 10mg Take 10 mg Univers N CALCIUM 8-28 by mouth. ity o f (ATORVASTAT 14:35: [place] IN ORAL) [address] [place] [address] ALPRAZOLAM Yes .25mg Take 0.25 U nivers ORAL 8-28 mg by ity of 14:35: mouth. [address] ATORVASTATI Yes 10mg Take 10 mg Univers N CALCIUM 8-28 by mouth. ity o f (ATORVASTAT 14:35: [place] IN ORAL) [address] [place] [address] ALPRAZOLAM Yes .25mg Take 0.25 U nivers ORAL 8-28 mg by ity of 14:35: mouth. [address] ATORVASTATI Yes 10mg Take 10 mg Univers N CALCIUM 8-28 by mouth. ity o f (ATORVASTAT 14:35: [place] IN ORAL) [address] [place] [address] HYDROcodone Yes 1{tbl} Take 1-2 Univers -acetaminop [...] Immunizations Ordered Filled Immunization Date Status Comments [facility] e Immunization Name Name Pneumococcal 2013-09-30 Completed [...] 2013-09-30 Completed University o f Polysaccharide, 00:00:00 [place] Med ical PPSV23 (PNEUMOVAX) Branch Vital Signs Vital Name Observation Time Observation Value Comments Source height 2022-07-05 13:45:00 70 [in_i] [facility] weight 2022-07-05 13:45:00 180.6 [lb_av] Common [facility] temperature 2022-07-05 13:45:00 97.9 [degF] [facility] bmi 2022-07-05 13:45:00 25.91 kg/m2 [facility] oximetry 2022-07-05 13:45:00 92 % [facility] respiratory rate 2022-07-05 13:45:00 16 /min Comm on [facility] blood pressure 2022-07-05 13:45:00 145 mm[Hg] Common Spirit - systolic [facility] blood pressure 2022-07-05 13:45:00 82 mm[Hg] Common Spirit - diastolic [facility] height 2022-05-25 09:00:00 70 [in_i] Common S pirit [facility] weight 2022-05-25 09:00:00 180 [lb_av] Common S pirit [facility] temperature 2022-05-25 09:00:00 98.0 [degF] Common S pirit [facility] bmi 2022-05-25 09:00:00 25.82 kg/m2 Common S [facility] oximetry 2022-05-25 09:00:00 99 % [facility] respiratory rate 2022-05-25 09:00:00 18 /min Comm on [facility] blood pressure 2022-05-25 09:00:00 142 mm[Hg] Common [facility] - systolic [facility] blood pressure 2022-05-25 09:00:00 68 mm[Hg] Common [facility] - diastolic [facility] height 2022-03-29 13:45:00 70 [in_i] Common [facility] weight 2022-03-29 13:45:00 175.6 [lb_av] Common [facility] temperature 2022-03-29 13:45:00 98.6 [degF] Common S pirit [facility] bmi 2022-03-29 13:45:00 25.19 kg/m2 Common S [facility] oximetry 2022-03-29 13:45:00 99 % Common S [facility] respiratory rate 2022-03-29 13:45:00 16 /min Comm on [facility] blood pressure 2022-03-29 13:45:00 180 mm[Hg] Common [facility] - systolic [facility] blood pressure 2022-03-29 13:45:00 86 mm[Hg] Common Spirit - diastolic [facility] Heart rate 2021-01-03 20:44:00 71 /min Universi ty [facility] Body height 2021-01-03 20:44:00 185.4 cm Universi ty [facility] Body weight 2021-01-03 20:44:00 74.39 kg Universi ty [facility] BMI 2021-01-03 20:44:00 21.64 kg/m2 Universi ty [facility] Systolic blood 2021-01-03 20:44:00 131 mm[Hg] Univer sity of pressure [facility] Diastolic blood 2021-01-03 20:44:00 80 mm[Hg] Unive rsity of [facility] Systolic blood 2020-12-15 19:54:00 125 mm[Hg] Univer sity of [facility] Diastolic blood 2020-12-15 19:54:00 84 mm[Hg] Unive rsity of [facility] Heart rate 2020-12-15 19:54:00 72 /min Universi ty [facility] Body height 2020-12-15 19:54:00 185.4 cm Universi ty [facility] Body weight 2020-12-15 19:54:00 74.39 kg Universi ty [facility] BMI 2020-12-15 19:54:00 21.64 kg/m2 Universi ty [facility] Procedures Procedure Date / Time Performed Performing Clinician Viji e XR SHOULDER 2+ VW 2020-12-15 19:58:22 Tamika Nuno [facility] Encounters Start End Encounter Admission Attending Care Care Encounter Source Date/Time Date/Time Type Type Clinicians Facility Department ID 2022-11-08 Outpatient STLMLC STLMLC [id number] Common 15:59:01 [id number] [facility] 2022-06-29 Outpatient STLMLC STLMLC [id number] Common 14:22:02 [id number] [facility] 2022-03-29 Outpatient STLMLC STLMLC [id number] Common 13:41:02 [id number] [facility] 2022-07-05 2022-07-05 OFFICE STLMLC STLMLC [id number] Co mmon 00:00:00 00:00:00 VISIT EST Spir it PT LEVEL 3 - [facility] 2022-05-25 2022-05-25 OFFICE STLMLC STLMLC [id number] Co mmon 00:00:00 00:00:00 VISIT EST Spir it PT LEVEL 3 - [facility] 2022-04-17 2022-04-17 (TEL) STLMLC STLMLC [id number] Co mmon 00:00:00 00:00:00 Spirit - [facility] 2022-03-29 2022-03-29 OFFICE STLMLC STLMLC [id number] Co mmon 00:00:00 00:00:00 VISIT NEW Spir it PT LEVEL 4 - [facility] 2021-01-03 2021-01-03 [facility] [id number] Univers 15:36:48 15:51:48 Visit [facility] [id number] it y of Surgical [id number] [place] as Specialti [id number] Me dical es 198 [facility] 2021-01-03 2021-01-03 [facility] [id number] Univers 15:45:00 15:45:00 [facility] 2020-12-15 2020-12-15 [facility] [id number] Univers 14:58:21 23:59:00 Encounter [facility] [id number] ity of Surgical [id number] [place] as Specialti [phone] Az dical es [id number] [facility] 2020-12-15 2020-12-15 Office [facility] [id number] Univers 14:04:16 16:45:59 Visit [facility] [id number] it y of Surgical [id number] [place] Specialti [id number] Me dical es 198 [facility] 2020-12-15 2020-12-15 Outpatient [facility] [id number] Univers 14:30:00 14:30:00 TAMIKA ity [facility] 2020-12-06 2020-12-06 Outpatient R [facility] [id number] Univers 14:15:00 14:15:00 [facility] Results Test Description Test Time Test Comments Results Result [facility] e Comments XR SHOULDER 2+ VW 2020-12-15 He has a large Uni versity of RIGHT 21:08:25 rotator cuff [place] [facility] arthropathy the Branch humeral head is migrated superior up against the acromion there are degenerative changes 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
[2022-11-17 14:47] LABS: Absolute Lymphocytes (CBC) 0.9 K/uL (0.7-4.9); Hematocrit 40.8 % (39.6-49.0); MCV 93.5 fL (80-100); MPV 7.3 fL (7.6-11.3); RBC Red Blood Cell Count 4.36 M/uL (4.33-5.43)
[2022-11-17 14:52] LABS: Urine Bacteria >50 /HPF (<20); Urine Mucus Slight /HPF (None Seen); Urine RBC >50 /HPF (None Seen)
[2022-11-17 15:05] LABS: Albumin 3.9 g/dL (3.4-5.0); Bilirubin Total 0.6 mg/dL (0.2-1.0); Potassium 3.9 mEq/L (3.5-5.1); Protein, Total 7.9 g/dL (6.4-8.2)
--- NOTE | 2022-11-17 15:40 | ER ---
Nurse's Notes [facility] Name: Sushil Lindquist Age: 77 yrs Sex: Male : 1945 Arrival Date: 11/17/2022 Time: 13:23 Bed 14 Private MD: Diagnosis: UTI/ Urinary tract infection, site not specified Presentation: 11/17 13:40 Chief complaint: Patient states: Pain to penis - catheter issue. Blood in urine. ss Coronavirus screen: At this time, the client does not indicate any symptoms associated with coronavirus-19. Ebola Screen: No symptoms or risks identified at this time. Initial Sepsis Screen: Does the patient meet any 2 criteria? No. Patient's initial sepsis screen is negative. Does the patient have a suspected source of infection? No. Patient's initial sepsis screen is negative. Risk Assessment: Do you want to hurt yourself or someone else? Patient reports no desire to harm self or others. Onset of symptoms was November 17, 2022. 13:40 Method Of Arrival: Ambulatory ss 13:40 Acuity: MARIAA 3 ss Triage Assessment: 13:41 General: Appears in no apparent distress. uncomfortable, Behavior is calm, cooperative, ss appropriate for age. Pain: Complains of pain in shaft of penis Pain does not radiate. Pain currently is 10 out of 10 on a pain scale. Quality of pain is described as throbbing. EENT: No signs and/or symptoms were reported regarding the EENT system. Neuro: Level of Consciousness is awake, alert, obeys commands, Oriented to person, place, time, situation. Cardiovascular: Capillary refill < 3 seconds Patient's skin is warm and dry. Respiratory: Airway is patent Respiratory effort is even, unlabored. GI: Abdomen is flat, non-distended. : Reports pain scrotum. Derm: No signs and/or symptoms reported regarding the dermatologic system. Musculoskeletal: No signs and/or symptoms reported regarding the musculoskeletal system. Historical: - Allergies: 13:41 No Known Allergies; ss - PMHx: 13:41 Diabetes mellitus; BPH; Hypercholesterolemia; ss - PSHx: 13:41 None; ss - Immunization history:: Adult Immunizations up to date, Client reports receiving the 2nd dose of the Covid vaccine. - Social history:: Smoking status: Patient denies any tobacco usage or history of. Patient/guardian denies using alcohol. - Family history:: not pertinent. Screenin:00 [facility] ED Fall Risk Assessment (Adult) History of falling in the last 3 months, ko1 including since admission No falls in past 3 months (0 pts) Confusion or Disorientation No (0 pts) Intoxicated or Sedated No (0 pts) Impaired Gait No (0 pts) Mobility Assist Device Used No (0 pt) Altered Elimination No (0 pt) Score/Fall Risk Level 0 - 2 = Low Risk Oriented to surroundings, Maintained a safe environment, Educated pt \T\ family on fall prevention, incl call for assistance when getting out of bed, Assessed \T\ reinforced patient's understanding of fall precautions, Provided non-skid footwear, Hourly rounding (assess needs \T\ fall precautionary measures) done, Used ambulatory aids as needed (educated on \T\ assisted with), Used gait belt as appropriate. Abuse screen: Denies threats or abuse. Denies injuries from another. Nutritional screening: No deficits noted. Tuberculosis screening: No symptoms or risk factors identified. Assessment: 15:00 General: Appears in no apparent distress. comfortable. Pain: Denies pain. Neuro: No ko1 deficits noted. Cardiovascular: No deficits noted. Respiratory: No deficits noted. GI: No deficits noted. : Reports blood in catheter. EENT: No deficits noted. Derm: No deficits noted. Musculoskeletal: No deficits noted. Vital Signs: 13:40 Pulse 92; Resp 18; Temp 98.3(O); Pulse Ox 99% on R/A; Pain 8/10; ss 13:41 BP 141 / 90; Pulse 90; ss 13:40 Pain Scale: Adult ss ED Course: 13:25 Patient arrived in ED. ts1 13:31 Geremias Bello MD is Attending Physician. rt 13:41 Triage completed. ss 13:43 Arm band placed on right wrist. ss 14:45 Inserted saline lock: 20 gauge in left antecubital area, using aseptic technique. Blood aw1 collected. 14:45 Initial lab(s) drawn, by me, sent to lab. aw1 14:45 CMP Sent. aw1 14:45 CBC with Diff Sent. aw1 14:45 Urine collected: Barrera catheter specimen, blood tinged. aw1 14:49 Jen Hathaway, MARLON is Primary Nurse. ko1 15:00 Patient has correct armband on for positive identification. Bed in low position. Call ko1 light in reach. Side rails up X 1. Client placed on continuous cardiac and pulse oximetry monitoring. NIBP monitoring applied. playground monitor on. Door closed. Noise minimized. Lights dimmed. Warm blanket given. 15:00 No provider procedures requiring assistance completed. IV discontinued, intact, ko1 bleeding controlled, No redness/swelling at site. Pressure dressing applied. 15:32 Urine Culture Sent. ko1 15:39 Manish Garcia MD is Referral Physician. rt Administered Medications: 15:43 Drug: HYDROcodone-acetaminophen PO 5 mg-325 mg 1 tabs Route: PO; ko1 Medication: 15:00 VIS not applicable for this client. ko1 Outcome: 15:40 Discharge ordered by . rt 15:59 Discharged to home ambulatory. ko1 15:59 Condition: good 15:59 Discharge instructions given to patient, family, Instructed on discharge instructions, follow up and referral plans. Demonstrated understanding of instructions, follow-up care, Prescriptions given X 2. 15:59 Patient left the ED. ko1 Addendum: 11/19/2022 12:09 Addendum: Culture Results: Positive urine culture. Bacteria is resistant to, has a a5 intermediate sensitivity, or is not tested against prescribed antibiotics. Report given to AYUSH for further evaluation and then to automation engineer for follow up with patient. Phone call Attempt #1 left voice mail. Signatures: Milvia Brooks RN RN aa5 Jovana Vallejo RN RN ss Jen Hathaway RN RN ko1 Geremias Bello MD MD rt Ruth Saldivar PAS PAS ts1 Viviana Gonsales aw1 Corrections: (The following items were deleted from the chart) 11/17 13:42 13:41 PMHx: Hypertensive disorder; [facility] 14:46 14:45 Urinalysis W/Microscopic+U.LAB.BRZ drawn and sent. aw1 EDMS
--- NOTE | 2022-11-17 15:40 | EDPHYS ---
Physician Documentation [facility] Name: Sushil Lindquist Age: 77 yrs Sex: Male : 1945 Arrival Date: 11/17/2022 Time: 13:23 Bed 14 Private MD: ED Physician Geremias Bello HPI: 11/17 14:15 This 77 yrs old Male presents to ER via Ambulatory with complaints of Blood In rt Catheter. 14:15 About 2 weeks ago, the patient had a hydrocele procedure that was complicated by rt postoperative urinary retention, likely thought to be due to the prostate. Patient Barrera catheter placed in the emergency department. Subsequently had a return visit due to leakage around the urinary catheter, remedied by replacement. Today, the patient complained of pain at the tip of the penis at the insertion site of the catheter as well as having hematuria present with a small amount of clots. The patient denies being on any anticoagulants. He denies other acute complaints at this time including urinary retention. Symptoms are moderate in severity, no other aggravating alleviating factors.. Historical: - Allergies: 13:41 No Known Allergies; ss - PMHx: 13:41 Diabetes mellitus; BPH; Hypercholesterolemia; ss - PSHx: 13:41 None; ss - Immunization history:: Adult Immunizations up to date, Client reports receiving the 2nd dose of the Covid vaccine. - Social history:: Smoking status: Patient denies any tobacco usage or history of. Patient/guardian denies using alcohol. - Family history:: not pertinent. ROS: 14:15 Constitutional: Negative for fever, chills, and weight loss, Cardiovascular: Negative rt for chest pain, palpitations, and edema, Respiratory: Negative for shortness of breath, cough, wheezing, and pleuritic chest pain, Abdomen/GI: Negative for abdominal pain, nausea, vomiting, diarrhea, and constipation, Skin: Negative for injury, rash, and discoloration, Neuro: Negative for headache, weakness, numbness, tingling, and seizure, Psych: Negative for depression, anxiety, suicide ideation, homicidal ideation, and hallucinations. 14:15 : Positive for hematuria, penile pain. Exam: 14:15 Constitutional: This is a well developed, well nourished patient who is awake, alert, rt and in no acute distress. Head/Face: Normocephalic, atraumatic. Chest/axilla: Normal chest wall appearance and motion. Nontender with no deformity. No lesions are appreciated. Cardiovascular: Regular rate and rhythm with a normal S1 and S2. No gallops, murmurs, or rubs. Normal PMI, no JVD. No pulse deficits. Respiratory: Lungs have equal breath sounds bilaterally, clear to auscultation and percussion. No rales, rhonchi or wheezes noted. No increased work of breathing, no retractions or nasal flaring. Abdomen/GI: Soft, non-tender, with normal bowel sounds. No distension or tympany. No guarding or rebound. No evidence of tenderness throughout. Skin: Warm, dry with normal turgor. Normal color with no rashes, no lesions, and no evidence of cellulitis. MS/ Extremity: Pulses equal, no cyanosis. Neurovascular intact. Full, normal range of motion. Neuro: Awake and alert, GCS 15, oriented to person, place, time, and situation. Cranial nerves II-XII grossly intact. Motor strength 5/5 in all extremities. Sensory grossly intact. Cerebellar exam normal. Normal gait. Psych: Awake, alert, with orientation to person, place and time. Behavior, mood, and affect are within normal limits. 15:42 : Barrera catheter in place, no drainage surrounding it, penis otherwise normal, rt surgical site appears to be well-healed.. Vital Signs: 13:40 Pulse 92; Resp 18; Temp 98.3(O); Pulse Ox 99% on R/A; Pain 8/10; ss 13:41 BP 141 / 90; Pulse 90; ss 13:40 Pain Scale: Adult ss MDM: 13:42 Patient medically screened. rt 15:42 Differential diagnosis: UTI, urinary obstruction. Data reviewed: vital signs, nurses rt notes, lab test result(s). Test considered but Not performed: CT: Symptoms not consistent with a urinary retention, ureterolithiasis. Do not believe that CT scan is indicated at this time.. Counseling: I had a detailed discussion with the patient and/or guardian regarding: the historical points, exam findings, and any diagnostic results supporting the discharge/admit diagnosis, lab results, the need for outpatient follow up. Response to treatment: the patient's symptoms have mildly improved after treatment. ED course: No evidence of sepsis, there are signs of UTI, no obvious obstruction, patient is flowing urine well. He does have an appointment next week with his urologist. We will start patient on antibiotic, return precautions were discussed.. 11/17 13:42 Order name: CBC with Diff; Complete Time: 15:22 rt 11/17 13:42 Order name: CMP; Complete Time: 15:22 rt 11/17 14:46 Order name: Urine Microscopic Only; Complete Time: 15:22 EDMS 11/17 14:55 Order name: Urine Culture EDMS Administered Medications: 15:43 Drug: HYDROcodone-acetaminophen PO 5 mg-325 mg 1 tabs Route: PO; ko1 Disposition Summary: 11/17/22 15:40 Discharge Ordered Location: Home rt Problem: new rt Symptoms: have improved rt Condition: Stable rt Diagnosis - UTI/ Urinary tract infection, site not specified rt Followup: rt - With: Manish Garcia MD - When: 5 - 6 days - Reason: Discharge Instructions: - Discharge Summary Sheet rt - Urinary Tract Infection, Adult rt Forms: - Medication Reconciliation Form rt - Thank You Letter rt - Antibiotic Education rt - Prescription Opioid Use rt Prescriptions: - acetaminophen-codeine 300-30 mg Oral tablet - take 1 tablet by ORAL route every 6 hours as needed for pain; 18 tablet; rt Refills: 0, Product Selection Permitted - cefpodoxime 200 mg Oral Tablet - take 1 tablet by ORAL route every 12 hours with food; 20 tablet; Refills: 0, rt Product Selection Permitted Signatures: Dispatcher [employer] Jovana Shoemaker RN RN ss Jen Hathaway RN RN ko1 Geremias Bello MD MD rt Corrections: (The following items were deleted from the chart) 13:42 13:41 PMHx: Hypertensive disorder; [facility] 14:46 13:43 Urinalysis W/Microscopic+U.LAB.BRZ ordered. EDNE EDMS
[2022-11-17] MEDS ORDERED: HYDROCODONE/APAP 5/325 MG TAB ONE (15:50)
[2022-11-17 16:25] VITALS: TEMP 98.3; O2SAT 99
[2022-11-17 16:30] VITALS: BP 141/90
== END 2022-11-17 15:59 | disposition home or self-care (01) ==
LOC: ER 13:23
DX: N39.0 Urinary tract infection, site not specified (principal); Z98.890 Other specified postprocedural states
CPT/HCPCS: 36415; 80053; 81015; 85025; 87077; 87086; 87088; 87186; 99284

== ENCOUNTER 2023-04-04 09:01 | Day surgery (SDC) | payer BC ==
--- NOTE | 2023-04-04 09:02 | RAD REPORT ---
EXAM DESCRIPTION: RAD - Chest Pa And Lat (2 Views) - 04/04/2023 8:57 am CLINICAL HISTORY: Pre op pending inguinal hernia repair COMPARISON: No comparisons FINDINGS: Lines: None. Lungs: No evidence of edema or pneumonia. Calcified left perihilar nodule . Pleural: No significant pleural effusions or pneumothorax. Cardiac: The heart size is within normal limits. Mediastinum: Within normal limits. Bones: No acute fractures. Other: Surgical clips in the right upper extremity/right axilla IMPRESSION: No acute cardiopulmonary disease.
[2023-04-04 09:18] LABS: Absolute Lymphocytes (CBC) 1.2 K/uL (0.7-4.9); Hematocrit 39.6 % (39.6-49.0); Lymphocytes % 22.2 % (15.3-44.8); MCV 92.3 fL (80-100); MPV 7.3 fL (7.6-11.3); Platelets 207 thou/uL (152-406); RBC Red Blood Cell Count 4.29 M/uL (4.33-5.43)
[2023-04-04 09:40] LABS: Potassium 3.8 mEq/L (3.5-5.1)
[2023-04-04] MEDS ORDERED: NA CHLORIDE 0.9% 1,000 ML ONE (09:46)
[2023-04-04] MEDS ORDERED: CEFAZOLIN SODIUM 1 GM/VIAL ONE (10:13)
[2023-04-04] MEDS ORDERED: KETOROLAC 30 MG/ML INJ ONE (10:19)
[2023-04-04] MEDS ORDERED: dexAMETHasone 10 MG/ML VIAL ONE (10:19)
[2023-04-04] MEDS ORDERED: ROCURONIUM 50 MG/5 ML VIAL IV ONE (10:19)
[2023-04-04] MEDS ORDERED: propofoL 200 MG/20 ML VIAL IV ONE (10:19)
[2023-04-04] MEDS ORDERED: ONDANSETRON 4 MG/2 ML VIAL ONE (10:20)
[2023-04-04] MEDS ORDERED: LIDOCAINE 2% MPF 5 ML VIAL ONE (10:20)
[2023-04-04] MEDS ORDERED: FENTANYL CITR 100 MCG/2 ML ONE ×2 (10:21→12:48)
--- NOTE | 2023-04-04 11:55 | EKG ---
Test Date: 2023-04-04 Test Time: 08:42:15 Underwater Trapper: MARIN MEASUREMENT RESULTS: Intervals: Rate: 61 IL: 190 QRSD: 80 QT: 412 QTc: 414 [place]: P: 61 IL: 190 QRS: 49 T: 51 INTERPRETIVE STATEMENTS: Sinus rhythm with marked sinus arrhythmia Otherwise normal ECG Compared to ECG 09/09/2015 17:01:13 No significant changes Electronically Signed On 04-04-23 11:55:07 CDT by Orlin Yadav
--- NOTE | 2023-04-04 12:03 | P.BOP ---
Preoperative diagnosis: incarcerated right inguinal hernia Postoperative diagnosis: same Primary procedure: Laparoscopic repair of incarcerated right inguinal hernia with mesh Brake Specialist: Lolita Quezada) Estimated blood loss: <10cc Specimen: none Findings: as above Anesthesia: General Complications: None Drain(s): Other Transferred to: Recovery Room Condition: Good
[2023-04-04] MEDS ORDERED: GLYCOPYRROLATE 0.2 MG/ML SYR ONE (12:10)
[2023-04-04] MEDS ORDERED: NEOSTIGMINE 1 MG/ML -10 ML VIAL ONE (12:10)
[2023-04-04] MEDS ORDERED: Mastisol Adhesive Liq ONE (12:12)
[2023-04-04] MEDS ORDERED: TAMSULOSIN 0.4 MG SR CAP ONE (13:09)
[2023-04-04] MEDS ORDERED: CODEINE 30MG/APAP 300MG TAB ONE (13:27)
--- NOTE | 2023-04-04 20:24 | OP ---
Date of Procedure: 04/04/2023 Surgeon: Vick Copeland MD Route [employer] Supervisor: VINCENT Alaniz. Preoperative Diagnosis: Tender incarcerated right inguinal hernia. Postoperative Diagnosis: Tender incarcerated right inguinal hernia. Procedure: Laparoscopic repair of tender incarcerated right inguinal hernia with mesh. Estimated Blood Loss: Less than 10 cc. Specimen: None. Anesthesia: General plus local. Implant: 3D mesh, right side. Indication: This is a case of a 77-year-old patient who came to us with a right inguinal hernia. Th e patient had a left inguinal hernia and a left hydrocele repair not too long ago. Those were gigant ic. This hernia is smaller. It is still significant and giving him pain. He wants to repair this b efore it becomes gigantic as before and with the previous one, he could not even walk. So he underst and the benefits, alternatives, and risks of laparoscopic, possible open repair of right inguinal her bhargavi with mesh which include, but not limited to, infection, bleeding, damage to adjacent structures, anesthesia complication, recurrence, NC, and even . He also understands this may not relieve an y symptoms. He might need more than one surgical intervention. He understood, signed a consent. Description Of Procedure: Patient was brought to the operating room, placed in supine position. Ane sthesia was done without complication. A time-out was called. Abdomen and genital area were prepped and draped in the usual sterile fashion. Marcaine 0.5% was injected for local anesthetic followed b y sharp incision of skin on the infraumbilical region. Incision was carried down until we found ante rior rectus sheath that was opened on the right side. The muscle retracted laterally to expose the p osterior rectus sheath. The extraperitoneal space was gently developed with the help of blunt dissec tion and then we put over there a balloon tipped trocar in that region with the balloon. We put the cameras in and we inflated the balloon under direct visualization. Then removed the balloon and insu fflated the area. Once we created the extraperitoneal space, we proceeded under direct visualization , put two more trocars, 5 mm each one of them, one in the area of the suprapubic region, another one care home between the first and the second one. The preperitoneal space was gently developed by exposi ng the inferior epigastric vessels keeping them anterior. Tarun's ligament was dissected laterally to the junction with the iliac veins. The dissection continued inferiorly to the iliopubic tract renea iding damage to the femoral branch of the genitofemoral nerve and lateral femoral cutaneous nerve. T he cord structures were carefully skeletonized. We then found two hernia sacs, direct and indirect. So we removed the direct hernia sac first and reduced back into the abdominal cavity. Then, the ind irect by skeletonizing the spermatic cord structures. We also reduced that hernia sac. [facility], we calculated the size of a mesh that we needed in that area and a medium 3D mesh will cover dire ct and indirect spaces. So we put that through the trocar to cover direct, indirect spaces. After w e put over there, we secured lateral and superior to the iliopubic tract and inferior and medial to t he Tarun's ligament with the help of SorbaFix fixation device. After ensuring hemostasis and making sure the hernia sac which was reduced into the abdominal cavity, under direct visualization, we proc eeded to deflate the area. Then, after that, trocars were removed and the anterior rectus sheath was covered with #1 Vicryl. 3-0 chromic was used to close subcutaneous tissue and then the skin in a koenig bcuticular fashion with 3-0 chromic and Steri-Strips on top. Sponge counts and instrument counts wer e correct. At the end of the case, testicles were within the scrotum. CATHY/LIS Voice ID: [id number] Report ID: [id number]
--- NOTE | 2023-04-04 20:25 | DS ---
Diagnosis: Incarcerated right inguinal hernia. Procedure: Laparoscopic repair of incarcerated right inguinal hernia with mesh. Disposition: Home. Activity: As tolerated. No heavy lifting. Plan: Follow up in my office in 1 week. Call for appointment [phone]. Keep area dry for 48 hours, then may shower. A scrotal support. Cold compress of the right inguinal region. MANDI Voice ID: [id number] Report ID: [id number]
[2023-04-05 15:45] VITALS: BP 135/72; TEMP 96.9; O2SAT 96
== END 2023-04-04 13:49 | disposition home or self-care (01) ==
LOC: OR 09:01
PROVIDERS: ATTEND Surgery
PROC: 0YU54JZ Supplement Right Inguinal Region with Synthetic Substitute, Percutaneous Endoscopic Approach (ICD-10-PCS; principal; 2023-04-04 11:00)
DX: K40.30 Unilateral inguinal hernia, with obstruction, without gangrene, not specified as recurrent (principal); E11.9 Type 2 diabetes mellitus without complications; E78.00 Pure hypercholesterolemia, unspecified; I89.0 Lymphedema, not elsewhere classified; N40.0 Benign prostatic hyperplasia without lower urinary tract symptoms
CPT/HCPCS: 36415; 71046; 80048; 82947; 85025; 93005; J0690; J1100; J2001; J2405; J2704; J2710; J3010; J7030

== ENCOUNTER 2023-05-29 06:29 | Day surgery (SDC) | payer BC ==
[2023-05-14 12:33] LABS: Absolute Lymphocytes (CBC) 1.1 K/uL (0.7-4.9); Hematocrit 43.1 % (39.6-49.0); Lymphocytes % 20.5 % (15.3-44.8); MPV 7.4 fL (7.6-11.3); Platelets 193 thou/uL (152-406); Protime INR 0.99; RBC Red Blood Cell Count 4.63 M/uL (4.33-5.43)
[2023-05-16 19:57] LABS: PSA FREE 1.22 ng/mL
[~2023-05-29 06:29] MED LIST: AMPICILLIN SODIUM 2 GM in NA CHLORIDE 0.9% 100 ML IVPB SCH; Gentamicin Inj 180 MG in NA CHLORIDE 0.9% 100 ML IV SCH; OXYBUTYNIN ER 5 MG TAB PO SCH; PHENAZOPYRIDINE 100MG TAB PO SCH
[2023-05-29] MEDS ORDERED: CODEINE 30MG/APAP 300MG TAB PO PRN (07:31)
[2023-05-29] MEDS ORDERED: PHENAZOPYRIDINE 100MG TAB PO ONE ×2 (07:31→14:04)
[2023-05-29] MEDS ORDERED: OXYBUTYNIN ER 5 MG TAB PO ONE (10:00)
[2023-05-29] MEDS: HYDROMORPHONE HCL 1 MG/ML INJ ONE ×2 (13:12→13:17)
[2023-05-29 13:55] VITALS: BP 130/77; TEMP 97.2; O2SAT 98
[2023-05-29] MEDS ORDERED: CODEINE 30MG/APAP 300MG TAB ONE (14:03)
--- NOTE | 2023-05-29 15:56 | OP ---
Surgeon: LES ROJAS Preoperative Diagnoses: 1.Benign prostatic hypertrophy with lower urinary tract obstruction and symptoms, greater than 150 g . 2.Bladder calculi, 2, approximately 1 to 1.5 cm each. 3.Elevated PSA. Postoperative Diagnoses: 1.Benign prostatic hypertrophy with lower urinary tract obstruction and symptoms, greater than 150 g . 2.Bladder calculi, 2, approximately 1 to 1.5 cm each. 3.Elevated PSA. Principal Procedures: 1.Cystolitholapaxy with holmium laser. 2.Bipolar transurethral resection of the prostate, extensive, greater than 2.5 hours required. Indication For Procedure: Mr. Lindquist presented to the Urology [facility] and has been treated and we ll known to me for other conditions. He eventually developed worsening of his obstructive LUTS assoc iated with some hematuria and was identified to have significant prostatic urethral hypertrophy with intravesical projection of a median lobe growing under and undermining the trigone abutting the urete ral orifices bilaterally. He also had at least 2 calculi present within his bladder, approximately 1 to 1.5 cm each. He thus underwent evaluation and was counseled on the need for management of the bl adder stones and was also recommended for management of his prostatic urethral obstruction; since the stones likely formed as a result of incomplete emptying of his bladder. Procedure In Detail: The patient was consented in the preoperative holding area before being transfe rred to the operative suite where general anesthesia was induced. He was given ampicillin 2 g and ge ntamicin 180 mg IV antimicrobial prophylaxis, and pneumo boots were provided for DVT prophylaxis. He was placed in the lithotomy position, padded and secured to the table appropriately, and his genital ia were prepped with Hibiclens before being draped in standard fashion. The case was begun using ure thral sounds to dilate the meatus and fossa navicularis to 28 Eritrean, then I passed a 26 Eritrean resec toscope sheath and a visual obturator via his urethra and into his bladder with relative ease. The p reviously observed cystoscopic findings were again observed and the stones were visible dependently w ithin his bladder. As a result, I switched the visual obturator for a monopolar bridge through which I passed a 5-Eritrean ureteral access catheter and a 550 nm laser fiber. I then targeted the stones i nitially at power of 1 joule and 15 hertz, but the stone was incredibly hard in nature and I had to i ncrease sequentially to 2 joules before eventually getting to 2.5 joules before the stone would fragm ent efficiently. Once both stones had been fragmented, I was then able to remove the stone fragments by direct vision or using the TOBESOFT evacuator. These were sent for pathologic identification. I th en turned my attention to the prostate. Using a bipolar resectoscope and a bipolar loop, I initially targeted the intravesical projection of the median lobe undermining the trigone and with the right u reteral orifice in direct vision, I began resecting the component of the prostate that was involving the trigone in that location, essentially resecting it across the trigone and avoiding the left urete ral orifice, which was also spared. I continued the resection of that median bar and intravesical pr ojection of median lobar tissue until it was down smooth with the bladder neck. I fulgurated the are a abutting the ureteral orifices early on in the case to avoid constant bleeding there that may obscu re subsequent visualization of the ureteral orifices and resulted in inadvertent injury. Once adequa te bleeding control was obtained with the bladder neck resection, I then continued resection of the m edian bar all the way down several centimeters approximately 5 to 6 cm in length down to the verumont sari. Once a smooth trough had been created, I then extended that resection starting at the level of the bladder neck on the patient's left side and resecting the proximal third of the prostate at the bladder neck from inferior to superior and the anterior portion of the prostate that was intravesical ly projecting. I then resected a significant degree of the middle third of the prostate from posteri or to anterior before getting to the apex of the prostate where I again resected the left lateral lob e from posterior to anterior. Extensive resection was required with multiple repeat resections after decompression of his bladder and repeat survey of the tissue that was subsequently collapsed and int erdigitate within the prostatic urethra lumen. After adequate tissue had been resected, I then turne d my attention to the patient's right side where I again resected the proximal third at the bladder n vladislav from posterior to anterior, the middle third of the prostate from posterior to anterior, and then the apical portion of the prostate from posterior to anterior. Again, multiple rounds of resection were required at each location due to the extensive amount of tissue that would collapse into the pro static urethra with each round of resection. Eventually, after I resected a significant degree of ti rodolfo and Qi evacuated chips at multiple points throughout the process of fulgurating along the way for any arterial bleeders encountered, I then decompressed his bladder completely and again performe d a repeat resection of additional tissue that was emanating from the patient's right lateral wall in the apical mid gland largely, and from the patient's left lateral wall involving the mid gland porti on of his prostate. After additional resection was performed and all those chips had been removed, I then with his bladder completely decompressed, completely fulgurated any and all bleeding vessels wi thin the prostatic fossa. I resected more tissue along the way as nodular prostate was encountered. I then under direct vision ensured all prostate chips had been removed and with his bladder complete ly decompressed, I turned on slow drip irrigation to identify any and all oozing vessels from the felicia ous ooze and each area was fulgurated until it was completely hemostatic with the bladder completely decompressed and no irrigant fluid running. At this point, with a nice prostatic fossa and channel c reated with no interdigitating intraluminal tissue observed, I then retrograde filled his bladder wit h saline before removing the scope, ensuring all prostate tissue came out with the scope, and then re placed a 24-Eritrean 3-way Barrera catheter into his bladder with ease. Over 2-1/2 hours of resection wa s required due to the extensive size of the prostate and the tissue involved. He was thus connected to slow drip CBI after the catheter was placed with 30 cc of sterile water in the balloon, and he was taken out of the lithotomy position. I placed the catheter to moderate traction on his left lower t high, and then he was awakened from general anesthesia. He was then transferred to a stretcher [facility] e being transferred to the recovery room in good condition. Complications: None. Discharge Disposition: He will be standard postop TURP pathway with anticipated voiding trial on Sun and subsequent followup to be established in about 3 months' time. He should be notified that if he has any significant issues in that interim timeframe, he should notify me for interval evaluation. HANNAH/MODL Voice ID: [id number] Report ID: [id number]
== END 2023-05-29 16:10 | disposition home or self-care (01) ==
LOC: PRE 06:29 → OR 16:10
PROVIDERS: ATTEND Urology
PROC: 0VT08ZZ Resection of Prostate, Via Natural or Artificial Opening Endoscopic (ICD-10-PCS; 2023-05-29)
PROC: 0TCB8ZZ Extirpation of Matter from Bladder, Via Natural or Artificial Opening Endoscopic (ICD-10-PCS; principal; 2023-05-29 07:30)
DX: N40.1 Benign prostatic hyperplasia with lower urinary tract symptoms (principal); N21.0 Calculus in bladder; N13.8 Other obstructive and reflux uropathy; R97.20 Elevated prostate specific antigen [PSA]; E11.9 Type 2 diabetes mellitus without complications; E78.00 Pure hypercholesterolemia, unspecified
CPT/HCPCS: 36415; 80048; 82360; 82947; 84153; 84154; 85025; 85610; 87077; 87086; 87088; 87186; 88300; 88305; J0290; J1170; J1580

== ENCOUNTER 2024-07-28 08:42 | Day surgery (SDC) | payer BC ==
[2024-07-25 15:36] LABS: Absolute Basophils 0.1 K/uL (0-0.5); Absolute Eosinophils 0.1 K/uL (0-0.5); Absolute Lymphocytes (CBC) 1.8 K/uL (0.7-4.9); Absolute Monocytes 0.5 K/uL (0.1-1.3); Absolute Neutrophil 4.1 K/uL (1.8-8.0); Basophils % 0.8 % (0-1.3); Eosinophils % 1.5 % (0-4.4); Hematocrit 42.1 % (39.6-49.0); Hemoglobin 14.5 g/dL (13.6-17.9); Lymphocytes % 27.4 % (15.3-44.8); MCH 32.1 pg (27.0-35.0); MCHC 34.5 g/dL (32.0-36.0); MCV 93.1 fL (80-100); MPV 6.8 fL (7.6-11.3); Monocytes % 8.1 % (3.3-12.3); Neutrophils % 62.2 % (41.7-73.7); Nucleated Red Blood Cells % 0.1 % (0-0); Platelets 221 thou/uL (152-406); RBC Red Blood Cell Count 4.52 M/uL (4.33-5.43); Red Cell Distribution Width 14.6 % (12.1-15.2)
--- NOTE | 2024-07-25 15:47 | RAD REPORT ---
Procedure: Chest Pa And Lat (2 Views) HISTORY: Preop for hernia repair. COMPARISON: 2022 FINDINGS: The lungs appear clear of acute infiltrate. No significant pleural effusion noted. The heart is normal size. IMPRESSION: No acute abnormality is displayed.
[2024-07-25 15:50] LABS: Anion Gap 7.9 mEq/L (5.0-15.0); Potassium 3.9 mEq/L (3.5-5.1)
[2024-07-28] MEDS ORDERED: NA CHLORIDE 0.9% 1,000 ML ONE ×2 (09:06→10:46)
[2024-07-28] MEDS ORDERED: SUGAMMADEX SODIUM 200 MG/2 ML VIAL IV ONE (10:11)
[2024-07-28] MEDS ORDERED: LIDOCAINE 2% MPF 5 ML VIAL ONE (10:35)
[2024-07-28] MEDS ORDERED: FENTANYL CITR 100 MCG/2 ML ONE ×2 (10:35→11:28)
[2024-07-28] MEDS ORDERED: ONDANSETRON 4 MG/2 ML VIAL ONE (10:35)
[2024-07-28] MEDS ORDERED: propofoL 200 MG/20 ML VIAL IV ONE (10:35)
[2024-07-28] MEDS: CEFAZOLIN SODIUM 1 GM/VIAL ONE (11:02)
[2024-07-28] MEDS ORDERED: EPHEDRINE SULF 50 MG/ML VIAL ONE (11:08)
[2024-07-28] MEDS ORDERED: dexAMETHasone 4 MG/ML VIAL ONE (11:08)
--- NOTE | 2024-07-28 12:11 | P.BOP ---
Preoperative diagnosis: recurrent reducible tender right inguinal hernia Postoperative diagnosis: same Primary procedure: Open repair of recurrent reducible tender right inguinal hernia with mesh Estimated blood loss: <10cc Specimen: none Findings: RIH imbricated Anesthesia: General Complications: None Implants: large mesh plug and sheet Transferred to: Recovery Room Condition: Good
[2024-07-28 12:20] VITALS: O2SAT 98
[2024-07-28] MEDS: HYDROMORPHONE HCL 1 MG/ML INJ ONE (12:34)
[2024-07-28] MEDS ORDERED: TAMSULOSIN 0.4 MG SR CAP ONE (12:50)
[2024-07-28 14:09] VITALS: BP 131/72; TEMP 97.6
--- NOTE | 2024-07-28 20:15 | OP ---
Surgeon: Vick Copeland MD Preoperative Diagnosis: Recurrent reducible tender right inguinal hernia. Postoperative Diagnosis: Recurrent reducible tender right inguinal hernia. Procedure: Open repair of recurrent reducible tender right inguinal hernia with mesh. Estimated Blood Loss: Less than 10 cc. Specimen: None. Findings: Right inguinal hernia imbricated. Hernia sac with omental content. Anesthesia: General plus local. Implant: A large mesh plug and sheath. Complications: None. Indication: This is a case of a male, who came to us with above diagnosis. Fully explained the bene fits, alternatives, and risks of open repair of reducible tender right inguinal hernia with mesh whic h include, but not limited to, infection, bleeding, damage to adjacent structures, anesthesia complic ation, recurrence, [place], and even . He also understands this may not relieve any symptoms. He mi ght need more than one surgical intervention. He also understands the chance of a chronic numbness, chronic pain. He understood, signed a consent. The patient advised the importance of no heavy lifti ng. Description Of Procedure: The patient was brought to the operating room, placed in supine position. Anesthesia was induced without complication. Inguinal and abdomen were prepped and draped in a ster ile fashion. A time-out was called. An incision was made in the right inguinal region. Incision wa s carried down to Sangita's fascia until we found external oblique aponeurosis that we opened in direc tion of the fibers to connect to the superficial inguinal ring. Ilioinguinal nerve, iliohypogastric nerve were protected behind external oblique aponeurosis. Harmony placed around the spermatic cord. We the hernia sac from the spermatic cord structures. It looked more naturally imbricated due to the location. So, we proceeded to imbricate that area, put a large mesh plug in that region, secured that mesh plug with a Prolene. I have to mention that the hospital does not carry anymore t he VersaTack castillo in our region, so we used Prolene for the suture. At that moment, I put the mes h sheet on the floor of the canal securing that to pubic tubercle and using Prolene to connect it to the shelving edge of inguinal ligament and also another running one around the transversalis fascia. The tails looped around the spermatic cord and secured once again with Prolene without any strangula tion. Area was irrigated. Ilioinguinal nerve, iliohypogastric nerve brought back into the inguinal canal. The superficial inguinal ring was reconstructed and external oblique aponeurosis was closed w ith 2-0 Prolene avoiding entrapment of the nerve. The area was irrigated. Subcutaneous tissue close d with 3-0 chromic. Sangita's fascia closed with 3-0 chromic and then the skin with castillo. Sponge counts and instrument counts were correct. Patient tolerated the procedure well. Patient sent to [facility] in stable condition. At the end of the case, testicles are within the scrotum. CATHY/LIS Voice ID: [id number] Report ID: [id number]
--- NOTE | 2024-07-28 20:20 | DS ---
Date of Discharge: 07/28/2024 Diagnosis: Reducible with recurrent tender right inguinal hernia. Procedure: Open repair of recurrent reducible tender right inguinal hernia with mesh. Condition: Stable. Disposition: Home. Activity: As tolerated. No heavy lifting. Discharge Instructions: Follow up in my office in 1 week. Call for appointment at [phone]. Keep a anselmo dry for 48 hours, then may shower. Cold compress to the right inguinal region for 24 hours. For medications, see orders. CATHY/LIS Voice ID: [id number] Report ID: [id number]
== END 2024-07-28 14:00 | disposition home or self-care (01) ==
LOC: OR 08:42
PROVIDERS: ATTEND Surgery
PROC: 0YU50JZ Supplement Right Inguinal Region with Synthetic Substitute, Open Approach (ICD-10-PCS; principal; 2024-07-28 10:49)
DX: K40.91 Unilateral inguinal hernia, without obstruction or gangrene, recurrent (principal)
CPT/HCPCS: 36415; 71046; 80048; 82947; 85025; 88302; 93005; J0690; J1100; J1171; J2003; J2405; J2704; J3010; J7030